=== PATIENT | male | born 1955 | race Caucasian/White ===

== ENCOUNTER → 2017-10-21 10:30 | Outpatient (CLI) | payer OTHER, SELFPAY ==
[2017-10-21 12:48] LABS: Absolute Lymphocyte Count 1.59 X10^3/ul (0.83-4.51); Absolute Neutrophil Count 2.9 X10^3/uL (2.0-7.7); Basophil# 0.06 X10^3/uL; Basophil% 1.1 % (0-1); Eosinophil# 0.23 X10^3/uL; Eosinophils% 4.3 % (0-5); Hemoglobin 14.3 g/dl (13.0-16.5); Lymphocyte # 1.59 X10^3/ul (4.0); Lymphocyte % 29.6 % (19-41); Mean Corp Hgb Conc 33.3 g/gl (32-36); Mean Corpuscular Hgb 30.2 pg (27.0-32.0); Mean Corpuscular Volume 90.9 fL (80-94); Mean Platelet Vol. 11.6 fl (6.2-12.0); Monocyte# 0.55 X10^3/uL; Monocyte% 10.2 % (0-10); Neutrophil # 2.94 X10^3/uL (2.7-7.7); Neutrophil % 54.8 % (47-70); Platelet Count 231 K/mm3 (150-450); RBC Distribution Width CV 13.3 % (11.6-14.6); RBC Distribution Width SD 44.1 fl (35.1-43.9); Red Blood Count 4.73 M/mm3 (4.6-6.2); White Blood Count 5.4 K/mm3 (4.4-11.0)
[2017-10-21 12:49] LABS: POSITIVE COUNT NO; POSITIVE DIFFERENTIAL NO; POSITIVE MORPHOLOGY NO
[2017-10-21 13:08] LABS: ALB/GLOB Ratio 0.9 RATIO (0.9-2.4); AST(SGOT) 31 U/L (15-37); Alanine Aminotransfer ALT/SGPT 48 U/L (16-61); Alkaline Phosphatase 52 U/L (45-117); Anion Gap 6 (5-15); BUN 18 mg/dL (7-18); BUN/Creat Ratio 15.7 RATIO (10-20); Calcium,Total 8.9 mg/dL (8.5-10.1); Chloride 104 mmol/L (98-107); Creatinine, Serum 1.15 mg/dL (0.70-1.30); EST Glomerular Filtration Rate 69 mL/min (>60); Est Glom Filt Rate - Afr Amer 83 mL/min (>60); Globulin 4.3 g/dL (2.2-4.2); Glucose 96 mg/dL (74-106); Potassium 4.6 mmol/L (3.5-5.1); Protein, Total 8.3 g/dL (6.4-8.2); Sodium Level 139 mmol/L (136-145); Thyroid Stim Hormone (TSH) 1.67 uIU/mL (0.358-3.74)
[2017-10-22 14:21] LABS: Hep C Antibodies <0.1 s/co ratio (0.0-0.9)
== END ==
PROVIDERS: Visit Provider Family Medicine Geriatric Medicine
DX: Z00.00 Encounter for general adult medical examination without abnormal findings (principal); Z13.89 Encounter for screening for other disorder
CPT/HCPCS: 36415; 80053; 84443; 85025; 86803

== ENCOUNTER → 2018-11-09 08:48 | Outpatient (CLI) | payer OTHER, SELFPAY ==
[2018-11-09 11:57] LABS: Absolute Lymphocyte Count 0.89 X10^3/uL (0.83-4.51); Basophil# 0.05 X10^3/uL; Eosinophil# 0.06 X10^3/uL; Eosinophils% 1.2 % (0-5); Hematocrit 44.7 % (40-54); Hemoglobin 14.9 g/dL (13.0-16.5); Lymphocyte # 0.89 X10^3/ul (4.0); Lymphocyte % 18.2 % (19-41); Mean Corp Hgb Conc 33.3 g/dL (32-36); Mean Corpuscular Hgb 31.1 pg (27.0-32.0); Mean Corpuscular Volume 93.3 fL (80-94); Mean Platelet Vol. 11.5 fl (6.2-12.0); Monocyte# 0.92 X10^3/uL; Monocyte% 18.8 % (0-10); NRBC Flagged by Analyzer 0 % (0-5); Neutrophil # 2.96 X10^3/uL (2.7-7.7); Neutrophil % 60.6 % (47-70); Platelet Count 195 K/mm3 (150-450); RBC Distribution Width CV 12.6 % (11.6-14.6); RBC Distribution Width SD 43.3 fl (35.1-43.9); Red Blood Count 4.79 M/mm3 (4.6-6.2); White Blood Count 4.9 K/mm3 (4.4-11.0)
--- NOTE | 2018-11-09 12:13 | RAD_ITS ---
STUDY: X-RAY - CERVICAL SPINE REASON FOR EXAM: Male, 63 years old. Neck pain. TECHNIQUE: 3 view(s) of the cervical spine were obtained on 4 films. COMPARISON: None FINDINGS: There are degenerative changes of the anterior atlantoaxial articulation. Normal odontoid process. Normal cervical lordosis. Normal vertebral bodies and endplates. Normal disc space heights. There are multilevel degenerative arthroses of the cervical facet articulations. Calcification seen in the nuchal ligament at the level of the C4 spinous process. There is no demonstrated osseous destructive process or fracture of the cervical spine. 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 Electronically Signed: Adrian Ellington MD at 14:02 EDT , Service support ,
--- NOTE | 2018-11-09 12:14 | RAD_ITS ---
STUDY: X-RAY - LUMBAR SPINE REASON FOR EXAM: Male, 63 years old. Low back pain. TECHNIQUE: 3 view(s) of the lumbar spine were obtained. COMPARISON: None FINDINGS: Normal lumbar lordosis. There is no substantial scoliosis. There is a normal alignment of the vertebrae. There is multilevel endplate spondylosis of the lumbar vertebrae. There is multi-level degenerative disc disease with multi-level disc space narrowing. There is no demonstrated osseous destructive process or acute fracture. There are degenerative arthroses of the lower lumbar facet joints. The soft tissue structures are unremarkable. RAD/Lumbar Spine 2 or 3 Views IMPRESSION: Degenerative changes of the spine, as detailed above. Electronically Signed: Adrian Ellington MD at 14:03 EDT , Service support ,
[2018-11-09 12:24] LABS: AST(SGOT) 20 U/L (15-37); Alanine Aminotransfer ALT/SGPT 39 U/L (16-61); Albumin, Serum 3.9 g/dL (3.2-5.0); Alkaline Phosphatase 49 U/L (45-117); Anion Gap 6 (5-15); BUN 17 mg/dL (7-18); BUN/Creat Ratio 13.4 RATIO (10-20); Calcium,Total 9.1 mg/dL (8.5-10.1); Chloride 104 mmol/L (98-107); Creatinine, Serum 1.27 mg/dL (0.70-1.30); EST Glomerular Filtration Rate 61 mL/min (>60); Est Glom Filt Rate - Afr Amer 74 mL/min (>60); Globulin 3.8 g/dL (2.2-4.2); Glucose 101 mg/dL (74-106); PSA,Total - Annual Screen 1.19 ng/mL (0.00-4.00); Protein, Total 7.7 g/dL (6.4-8.2); Sodium Level 140 mmol/L (136-145); Thyroid Stim Hormone (TSH) 1.92 uIU/mL (0.358-3.74)
== END ==
PROVIDERS: Family Provider Family Medicine Geriatric Medicine; PCP Family Medicine Geriatric Medicine; Referring Provider Family Medicine Geriatric Medicine; Visit Provider Family Medicine Geriatric Medicine
DX: I10 Essential (primary) hypertension (principal); Z12.5 Encounter for screening for malignant neoplasm of prostate; M54.16 Radiculopathy, lumbar region; G54.2 Cervical root disorders, not elsewhere classified
CPT/HCPCS: 36415; 72040; 72100; 80053; 84153; 84443; 85025; G0103

== ENCOUNTER → 2018-11-17 06:31 | Outpatient (CLI) | payer OTHER, SELFPAY ==
--- NOTE | 2018-11-17 06:40 | MRI_ITS ---
STUDY: MRI LUMBAR SPINE WITHOUT CONTRAST REASON FOR EXAM: Male, 63 years old. radiculopathy, low back pain. TECHNIQUE: Standardized fat and water weighted pulse sequences were obtained in the sagittal and axial planes. COMPARISON: November 09, 2018 x-ray FINDINGS: T12-L1: There is minimal disc space narrowing and endplate spondylosis. There is no significant disc herniation, central canal or foraminal stenosis. Normal lumbar lordosis. There is no substantial scoliosis. Normal conus medullaris that terminates at the L1 L1-2: There is minimal disc space narrowing and endplate spondylosis. There is no significant disc herniation, central canal or foraminal stenosis. Mild facet arthropathy L2-3: There is moderate disc space narrowing and endplates spondylosis. Moderate disc bulge and facet arthropathy with moderate central canal stenosis. There is mild right and mild left foraminal stenosis. L3-4: There is minimal disc space narrowing and endplate spondylosis. There is a mild disc bulge and facet arthropathy with mild central canal stenosis. There is mild right and mild left foraminal stenosis. L4-5: There is moderate disc space narrowing and endplates spondylosis. There is mild disc bulge and facet arthropathy with mild central canal stenosis. There is mild right and mild left foraminal stenosis. L5-S1: There is moderate disc space narrowing and endplates spondylosis. There is a moderate disc osteophyte complex and facet arthropathy with mild central canal stenosis. There is moderate right and moderate left foraminal stenosis. Additionally there is superiorly directed right paracentral disc extrusion (1.0 x 0.5 x 1.3 cm) resulting in moderate right lateral recess narrowing. Normal visualized sacral ala. Normal visualized paraspinous soft tissue structures. MRI/Spine Lumbar (Routine) IMPRESSION: L2/L3: Moderate central canal stenosis. L5/S1: Right disc extrusion with moderate right lateral recess narrowing. Moderate bilateral foraminal stenosis. Electronically Signed: Handy Barraza MD at 8:17 EDT Tel , Service support ,
--- NOTE | 2018-11-17 06:40 | MRI_ITS ---
STUDY: MRI CERVICAL SPINE WITHOUT CONTRAST REASON FOR EXAM: Male, 63 years old. radiculopathy, numbness/tingling bilat hands when lying down TECHNIQUE: Standardized fat and water weighted pulse sequences were obtained in the sagittal and axial planes. COMPARISON: November 09, 2018 x-ray FINDINGS: Normal foramen magnum and brainstem-cervical cord junction. Normal craniovertebral junction. Normal anterior atlantoaxial articulation. Normal odontoid process. Normal cervical lordosis. C2-3: There is minimal disc space narrowing and endplate spondylosis. There is no significant disc herniation, central canal or foraminal stenosis. C3-4: There is minimal disc space narrowing and endplate spondylosis. There is minimal disc osteophyte complex without significant central canal stenosis. Uncovertebral arthropathy with mild right and moderate left foraminal stenosis C4-5: There is minimal disc space narrowing and endplates spondylosis. Minimal disc osteophyte complex without significant central canal post. Uncovertebral and facet arthropathy with moderate right and mild left foraminal stenosis. C5-6: There is minimal disc space narrowing and endplates spondylosis. Minimal disc osteophyte complex and dorsal ligamentous buckling with mild central canal stenosis. Uncovertebral arthropathy with moderate right and mild left foraminal stenosis. C6-7: There is minimal disc space narrowing and endplate spondylosis. There is no significant disc herniation, central canal or foraminal stenosis. C7-T1: Normal endplates. Normal disc height, signal and morphology. Normal central canal and intervertebral neural foramina. Normal cervical cord. MRI/Spine Cervical (Routine) IMPRESSION: CT/C4: Moderate left foraminal stenosis. C4/C5: Moderate right foraminal stenosis. C5/C6: Mild central canal stenosis. Moderate right foraminal stenosis. Electronically Signed: Handy Barraza MD at 8:18 EDT Tel , Service support ,
== END ==
PROVIDERS: Family Provider Family Medicine Geriatric Medicine; PCP Family Medicine Geriatric Medicine; Referring Provider Family Medicine Geriatric Medicine; Visit Provider Family Medicine Geriatric Medicine
DX: M54.16 Radiculopathy, lumbar region (principal); M54.12 Radiculopathy, cervical region
CPT/HCPCS: 72141; 72148

== ENCOUNTER 2019-11-12 05:02 | Emergency (ER) | payer OTHER, SELFPAY ==
[2019-11-12 05:04] VITALS: BP 146/92; PULSE 83; RESP 16; TEMP 36.2; O2SAT 97; BMI 29.0
--- NOTE | 2019-11-12 05:33 | ED.DCSUM_ITS ---
History of Present Illness Chief Complaint: Back Narrative: 64-year-old male with history of chronic neck and back pain presents with worsening neck pain. He states he was doing fine this morning upon awakening however he decided to work on his deck and he states he was contorted himself under the deck to try to fix it. After that she noticed that his trapezius was tightening in the right greater than left. He does not have chest pain or shortness of breath. He states that he has a follow-up appointment with his regular doctor on Wednesday. He states that Tylenol usually works for his chronic pain however he believes he needs a muscle relaxer for now until he can get into his primary doctor. Past Medical History - Allergies and Home Meds Allergies/Adverse Reactions: Allergies Penicillins Allergy (Verified 11/12/19 05:07) PT UNSURE OF REACTION Primary Care Physician: Arturo Vivar Chi, MD [Primary Care Provider] - Prior records reviewed: Yes Surgical History: noncontributory Smoking Status: Never smoker Review of Systems General: Denies: Chills, Fever Eyes: Denies: Visual changes - bilaterally, Diplopia ENT: Denies: Rhinorrhea, Sore throat Cardiovascular: Denies: Chest pain, Palpitations Respiratory: Denies: Dyspnea, Cough, Dyspnea on exertion Musculoskeletal: Reports: Neck pain, Back pain Skin: Denies: Rash Neurological: Denies: Headache, Weakness, Numbness Psych: Denies: Depression Physical Exam Vital Signs/Narrative: Vital Signs Temp Pulse Resp BP Pulse Ox 11/12/19 05:04 97.2 F L 83 16 146/92 H 97 Inital Vital Signs reviewed: Yes General: Well nourished, Well developed, No Acute Distress Head: Normocephalic, Atraumatic Eyes: Perrl, EOMI Neck: - - Tenderness to palpation in the right trapezius and right paraspinal musculature. Cardiovascular: Regular rate Respiratory: No distress Extremities: Nontender, - - Normal strength. Skin: Normal color Diagnostic/Tx/Re-eval - Medical Decision Making Patient presents with exacerbation of chronic neck pain. He is not had any direct trauma. He is not complaining of weakness or numbness. He states that he just has some muscle spasm. Not believe he needs an x-ray at this time. He states that Tylenol usually helps but is not helping currently. He requests a muscle relaxer. He will be given a prescription for this. Patient stable for discharge. Impression: 1. Cervical strain ED Disposition - Plan for ED Patient: Prescriptions: cycloBENZAPRine HCl [Flexeril] 10 mg PO TID PRN #20 tab PRN Reason: Muscle Spasm Transmission Status: Pending to [facility] [facility] Referrals: Arturo Vivar Chi, MD [Primary Care Provider] -
[2019-11-12 05:54] VITALS: BP 146/92; PULSE 83; RESP 16; O2SAT 97
[2019-11-12] MEDS: cycloBENZAPRine HCl 10 MG Tablet PO (06:01)
== END 2019-11-12 06:08 | disposition home or self-care (01) ==
PROVIDERS: Emergency Provider Student in an Organized Health Care Education/Training Program; PCP Family Medicine Geriatric Medicine
DX: S16.1XXA Strain of muscle, fascia and tendon at neck level, initial encounter (principal); X58.XXXA Exposure to other specified factors, initial encounter; Y93.H3 Activity, building and construction; Y92.008 Other place in unspecified non-institutional (private) residence as the place of occurrence of the external cause; G89.29 Other chronic pain
CPT/HCPCS: 99283

== ENCOUNTER → 2019-11-17 10:46 | Outpatient (CLI) | payer OTHER, SELFPAY ==
[2019-11-12 05:04] VITALS: BMI 29.0
[2019-11-17 13:09] LABS: Absolute Lymphocyte Count 1.02 X10^3/uL (0.83-4.51); Basophil# 0.03 X10^3/uL; Basophil% 0.8 % (0-1); Eosinophil# 0.07 X10^3/uL; Hemoglobin 13.8 g/dL (13.0-16.5); Lymphocyte # 1.02 X10^3/ul (4.0); Lymphocyte % 28.5 % (19-41); Mean Corp Hgb Conc 32.9 g/dL (32-36); Mean Corpuscular Hgb 30.9 pg (27.0-32.0); Mean Platelet Vol. 11.1 fl (6.2-12.0); Monocyte# 0.44 X10^3/uL; Monocyte% 12.3 % (0-10); NRBC Flagged by Analyzer 0 % (0-5); Neutrophil # 2.02 X10^3/uL (2.7-7.7); Neutrophil % 56.4 % (47-70); Platelet Count 257 K/mm3 (150-450); RBC Distribution Width CV 12.2 % (11.6-14.6); RBC Distribution Width SD 42.3 fl (35.1-43.9); Red Blood Count 4.47 M/mm3 (4.6-6.2); White Blood Count 3.6 K/mm3 (4.4-11.0)
[2019-11-17 13:25] LABS: ALB/GLOB Ratio 0.9 RATIO (0.9-2.4); AST(SGOT) 13 U/L (15-37); Alanine Aminotransfer ALT/SGPT 26 U/L (16-61); Albumin, Serum 3.7 g/dL (3.2-5.0); Alkaline Phosphatase 45 U/L (45-117); BUN 17 mg/dL (7-18); BUN/Creat Ratio 14.7 RATIO (10-20); Chloride 106 mmol/L (98-107); Cholesterol 143 mg/dL (200); Creatinine, Serum 1.16 mg/dL (0.70-1.30); EST Glomerular Filtration Rate 68 mL/min (>60); Est Glom Filt Rate - Afr Amer 82 mL/min (>60); Globulin 4.3 g/dL (2.2-4.2); Glucose 92 mg/dL (74-106); Potassium 4.2 mmol/L (3.5-5.1); Sodium Level 139 mmol/L (136-145); Triglycerides 93 mg/dL
[2019-11-17 13:26] LABS: Anion Gap 2 (5-15); High Density Lipoprotein 44 mg/dL; PSA,Total - Annual Screen 1.19 ng/mL (0.00-4.00); Thyroid Stim Hormone (TSH) 2.06 uIU/mL (0.358-3.74); Very Low Density Lipoprotein 19 mg/dL (5-40)
== END ==
PROVIDERS: PCP Family Medicine Geriatric Medicine; Visit Provider Family Medicine Geriatric Medicine
DX: E78.5 Hyperlipidemia, unspecified (principal); I10 Essential (primary) hypertension; Z12.5 Encounter for screening for malignant neoplasm of prostate
CPT/HCPCS: 36415; 80053; 80061; 84153; 84443; 85025; G0103

== ENCOUNTER → 2020-11-13 10:20 | Outpatient (CLI) | payer OTHER, SELFPAY ==
[2020-11-13 12:39] LABS: Absolute Lymphocyte Count 1.42 X10^3/uL (0.83-4.51); Absolute Neutrophil Count 2.1 X10^3/uL (2.0-7.7); Basophil# 0.06 X10^3/uL; Basophil% 1.4 % (0-1); Eosinophil# 0.07 X10^3/uL; Eosinophils% 1.7 % (0-5); Hematocrit 44.9 % (40-54); Hemoglobin 14.7 g/dL (13.0-16.5); Lymphocyte # 1.42 X10^3/ul (0.83-4.51); Lymphocyte % 34.3 % (19-41); Mean Corp Hgb Conc 32.7 g/dL (32-36); Mean Corpuscular Hgb 30.3 pg (27.0-32.0); Mean Corpuscular Volume 92.6 fL (80-94); Mean Platelet Vol. 11.1 fl (6.2-12.0); Monocyte# 0.53 X10^3/uL; Monocyte% 12.8 % (0-10); NRBC Flagged by Analyzer 0 % (0-5); Neutrophil # 2.05 X10^3/uL (2.7-7.7); Neutrophil % 49.6 % (47-70); Platelet Count 225 K/mm3 (150-450); RBC Distribution Width CV 12.5 % (11.6-14.6); RBC Distribution Width SD 42.6 fl (35.1-43.9); Red Blood Count 4.85 M/mm3 (4.6-6.2); White Blood Count 4.1 K/mm3 (4.4-11.0)
[2020-11-13 12:53] LABS: Vitamin D,25 Hydroxy 38.2 ng/mL
[2020-11-13 13:08] LABS: ALB/GLOB Ratio 1.2 RATIO (0.9-2.4); AST(SGOT) 28 U/L (15-37); Alanine Aminotransfer ALT/SGPT 59 U/L (16-61); Alkaline Phosphatase 48 U/L (45-117); Anion Gap 5 (5-15); BUN 13 mg/dL (7-18); BUN/Creat Ratio 11.2 RATIO (10-20); Calcium,Total 8.8 mg/dL (8.5-10.1); Chloride 105 mmol/L (98-107); Creatinine, Serum 1.16 mg/dL (0.70-1.30); EST Glomerular Filtration Rate 68 mL/min (>60); Est Glom Filt Rate - Afr Amer 82 mL/min (>60); Globulin 3.3 g/dL (2.2-4.2); Glucose 95 mg/dL (74-106); PSA,Total - Annual Screen 1.24 ng/mL (0.00-4.00); Potassium 4.6 mmol/L (3.5-5.1); Protein, Total 7.3 g/dL (6.4-8.2); Sodium Level 139 mmol/L (136-145); Thyroid Stim Hormone (TSH) 2.03 uIU/mL (0.358-3.74)
== END ==
PROVIDERS: PCP Family Medicine Geriatric Medicine; Visit Provider Family Medicine Geriatric Medicine
DX: I10 Essential (primary) hypertension (principal); E55.9 Vitamin D deficiency, unspecified; Z12.5 Encounter for screening for malignant neoplasm of prostate
CPT/HCPCS: 36415; 80053; 82306; 84153; 84443; 85025; G0103

== ENCOUNTER → 2020-12-09 | Outpatient (CLI) | payer OTHER, SELFPAY ==
[2020-12-09 16:36] LABS: M R Staph aureus DNA By PCR Negative (Negative); Probe Check PASS; Specimen Processing Control PASS; Staph aureus DNA By PCR NEGATIVE (Negative)
== END | disposition home or self-care (01) ==
LOC: LABSPEC 13:56
PROVIDERS: PCP Family Medicine Geriatric Medicine; Visit Provider Family Medicine Geriatric Medicine
DX: A49.02 Methicillin resistant Staphylococcus aureus infection, unspecified site (principal)
CPT/HCPCS: 87070; 87205; 87640

== ENCOUNTER → 2021-01-07 14:01 | Outpatient (CLI) | payer OTHER, SELFPAY ==
--- NOTE | 2021-01-07 14:35 | RAD_ITS ---
STUDY: X-RAY - LUMBOSACRAL SPINE REASON FOR EXAM: Male, 65 years old. LOW BACK PAIN TECHNIQUE: 7 radiographic view(s) of the lumbosacral spine were obtained. COMPARISON: 11/09/2018 FINDINGS: Normal lumbar lordosis. There is no substantial scoliosis. There is normal alignment of the vertebrae. There is no spondylolisthesis in flexion or extension. There is multilevel endplate spondylosis of the lumbar vertebrae. There is multi-level degenerative disc disease with multi-level disc space narrowing. There is no spondylolysis. Normal bilateral sacral ala, sacroiliac joints, and visualized sacrum. There is atherosclerotic calcification of the abdominal aorta without a demonstrated aneurysm. RAD/L/S Spine w Bend Min 6 Vw IMPRESSION: Degenerative changes of the spine, as detailed above. Electronically Signed: Bentley Ortiz MD at 5:25 EDT Tel , Service support ,
== END ==
PROVIDERS: PCP Family Medicine Geriatric Medicine; Referring Provider Family Medicine Geriatric Medicine; Visit Provider Family Medicine Geriatric Medicine
DX: M47.816 Spondylosis without myelopathy or radiculopathy, lumbar region (principal); M51.36 Other intervertebral disc degeneration, lumbar region; M48.061 Spinal stenosis, lumbar region without neurogenic claudication
CPT/HCPCS: 72114

== ENCOUNTER → 2021-12-29 | Outpatient (CLI) | payer OTHER, SELFPAY ==
[2021-12-29 15:43] LABS: Absolute Lymphocyte Count 1.86 X10^3/uL (0.83-4.51); Absolute Neutrophil Count 3.2 X10^3/uL (2.0-7.7); Basophil# 0.06 X10^3/uL; Eosinophil# 0.07 X10^3/uL; Eosinophils% 1.2 % (0-5); Hematocrit 44.4 % (40-54); Hemoglobin 15.1 g/dL (13.0-16.5); Lymphocyte # 1.86 X10^3/ul (0.83-4.51); Lymphocyte % 31.7 % (19-41); Mean Corpuscular Hgb 31.1 pg (27.0-32.0); Mean Corpuscular Volume 91.4 fL (80-94); Mean Platelet Vol. 10.7 fl (6.2-12.0); Monocyte% 11.9 % (0-10); NRBC Flagged by Analyzer 0 % (0-5); Neutrophil # 3.16 X10^3/uL (2.7-7.7); Platelet Count 266 K/mm3 (150-450); RBC Distribution Width CV 12.4 % (11.6-14.6); RBC Distribution Width SD 41.2 fl (35.1-43.9); Red Blood Count 4.86 M/mm3 (4.6-6.2); White Blood Count 5.9 K/mm3 (4.4-11.0)
[2021-12-29 16:06] LABS: AST(SGOT) 25 U/L (15-37); Alanine Aminotransfer ALT/SGPT 65 U/L (16-61); Albumin, Serum 3.9 g/dL (3.2-5.0); Alkaline Phosphatase 56 U/L (45-117); Anion Gap 7 (5-15); BUN 20 mg/dL (7-18); BUN/Creat Ratio 15.5 RATIO (10-20); Calcium,Total 9.3 mg/dL (8.5-10.1); Chloride 107 mmol/L (98-107); Creatinine, Serum 1.29 mg/dL (0.70-1.30); EST Glomerular Filtration Rate 60 mL/min (>60); Est Glom Filt Rate - Afr Amer 72 mL/min (>60); Glucose 91 mg/dL (74-106); Potassium 4.1 mmol/L (3.5-5.1); Protein, Total 7.9 g/dL (6.4-8.2); Sodium Level 142 mmol/L (136-145)
== END | disposition home or self-care (01) ==
PROVIDERS: PCP Family Medicine Geriatric Medicine; Visit Provider Family Medicine Geriatric Medicine
DX: I10 Essential (primary) hypertension (principal); Z12.5 Encounter for screening for malignant neoplasm of prostate
CPT/HCPCS: 36415; 80053; 84153; 84443; 85025; G0103

== ENCOUNTER → 2022-01-26 | Outpatient (CLI) | payer OTHER, SELFPAY ==
--- NOTE | 2022-01-26 16:58 | RAD_ITS ---
STUDY: X-RAY - LUMBAR SPINE REASON FOR EXAM: Male, 66 years old. LOW BACK PAIN TECHNIQUE: 3 view(s) of the lumbar spine were obtained. COMPARISON: January 07, 2021 Lumbar Spine x-ray FINDINGS: Normal lumbar lordosis. There is no substantial scoliosis. There is a normal alignment of the vertebrae. There is multilevel spondylosis. At the level of L5-S1 there is disc space narrowing vacuum phenomenon and facet arthropathy. L2-L3 there is disc space narrowing spondylosis. Phleboliths within the pelvis. There is partially visualized degenerative change acetabular spurring within the right hip joint. RAD/Lumbar Spine 2 or 3 Views IMPRESSION: Degenerative changes of the spine, as detailed above. Electronically Signed: Kori Dimas MD at 6:16 EDT ,
== END | disposition home or self-care (01) ==
LOC: RAD 16:50
PROVIDERS: PCP Family Medicine Geriatric Medicine; Referring Provider Family Medicine Geriatric Medicine; Visit Provider Family Medicine Geriatric Medicine
DX: M54.50 Low back pain, unspecified (principal)
CPT/HCPCS: 72100

== ENCOUNTER → 2022-07-28 | Outpatient (CLI) | payer OTHER, SELFPAY ==
--- NOTE | 2022-07-28 13:51 | RAD_ITS ---
INDICATION: Knee pain, no known trauma EXAMINATION/TECHNIQUE: X-RAY - RIGHT XR Knee 3 Views 3 VIEWS COMPARISON: None. FINDINGS: SOFT TISSUES: No soft tissue swelling or gas. No radiopaque foreign body. BONES/JOINTS: No acute fracture. Joint spaces anatomically aligned and well maintained. No sclerotic or destructive changes observed. RAD/Knee 3 Views IMPRESSION: Unremarkable study. Electronically Signed: Cain Cook MD at 19:28 EDT ,
== END | disposition home or self-care (01) ==
PROVIDERS: PCP Family Medicine Geriatric Medicine; Visit Provider Family Medicine Geriatric Medicine
DX: M25.561 Pain in right knee (principal)
CPT/HCPCS: 73562

== ENCOUNTER → 2023-05-25 | Outpatient (CLI) | payer MEDICARE, OTHER, SELFPAY ==
[2023-05-25 11:09] LABS: Absolute Lymphocyte Count 1.53 X10^3/uL (0.83-4.51); Absolute Neutrophil Count 2.4 X10^3/uL (2.0-7.7); Basophil# 0.07 X10^3/uL; Basophil% 1.4 % (0-1); Eosinophils% 2.1 % (0-5); Hematocrit 46.4 % (40-54); Hemoglobin 15.3 g/dL (13.0-16.5); Lymphocyte # 1.53 X10^3/ul (0.83-4.51); Lymphocyte % 31.5 % (19-41); Mean Corpuscular Hgb 29.9 pg (27.0-32.0); Mean Corpuscular Volume 90.6 fL (80-94); Mean Platelet Vol. 11.2 fl (6.2-12.0); Monocyte# 0.79 X10^3/uL; Monocyte% 16.3 % (0-10); NRBC Flagged by Analyzer 0 % (0-5); Neutrophil # 2.36 X10^3/uL (2.7-7.7); Neutrophil % 48.5 % (47-70); Platelet Count 229 K/mm3 (150-450); RBC Distribution Width CV 12.8 % (11.6-14.6); RBC Distribution Width SD 42.4 fl (35.1-43.9); Red Blood Count 5.12 M/mm3 (4.6-6.2); White Blood Count 4.9 K/mm3 (4.4-11.0)
[2023-05-25 11:22] LABS: Vitamin D,25 Hydroxy 26.8 ng/mL
[2023-05-25 11:41] LABS: ALB/GLOB Ratio 1.1 RATIO (0.9-2.4); AST(SGOT) 27 U/L (15-37); Alanine Aminotransfer ALT/SGPT 47 U/L (16-61); Alkaline Phosphatase 61 U/L (45-117); Anion Gap 5 (5-15); BUN 18 mg/dL (7-18); BUN/Creat Ratio 14.8 RATIO (10-20); Chloride 112 mmol/L (98-107); Creatinine, Serum 1.22 mg/dL (0.70-1.30); EST Glomerular Filtration Rate 63 mL/min (>60); Est Glom Filt Rate - Afr Amer 76 mL/min (>60); Globulin 3.5 g/dL (2.2-4.2); Glucose 91 mg/dL (74-106); PSA,Total - Annual Screen 1.09 ng/mL (0.00-4.00); Potassium 4.1 mmol/L (3.5-5.1); Protein, Total 7.5 g/dL (6.4-8.2); Sodium Level 143 mmol/L (136-145)
== END | disposition home or self-care (01) ==
LOC: POLAB3 10:31
PROVIDERS: PCP Family Medicine Geriatric Medicine; Visit Provider Family Medicine Geriatric Medicine
DX: I10 Essential (primary) hypertension (principal); E55.9 Vitamin D deficiency, unspecified; Z12.5 Encounter for screening for malignant neoplasm of prostate
CPT/HCPCS: 36415; 80053; 82306; 84153; 84443; 85025; G0103

== ENCOUNTER → 2023-06-16 | Outpatient (CLI) | payer MEDICARE, OTHER, SELFPAY ==
--- OUTSIDE RECORDS SUMMARY | 2023-06-16 20:00 | XMS RPT_ITS | CCD ---
Author Name Unknown Address [facility] [address] [place] [address] Organization [facility] Care Team Providers Care Director Counseling Bureau Name Role Phone Arturo Vivar Chi Primary Care Provider [phone] Medications Completed/Discontinued Medications Medication Drug Class(es) Dates Sig (Normalized) Sig (Original) Acetaminophen (1 source) acetaminophen (T YLENOL ORAL) Take by mouth. 0 Active Problems Problem Classification Problem Date Documented Da te Episodic/Chronic Coronary atherosclerosis and other heart disease (1 source) Coronary atherosclerosis; Translations: [Atherosclerotic heart disease of viejas coronary artery without angina pectoris] Onset: 01-31-2020 01-31-2020 Chronic Disorders of lipid metabolism (1 source) Hyperlipidemia; Translations: [Hyperlipidemia, unspecified] 01-31-2020 Chronic Essential hypertension (1 source) Hypertensive disorder; Translations: [Essential (primary) hypertension] 01-31-2020 Chronic Results Test Name Value Interpretation Reference Range Facil ity Encounters Encounter Date Encounter Type Care Provider Facility Start: 03-23-2022 Refill Kathleen murray [employer] SUPERVISOR Work Phone: Cardiology Procedures Date Procedure Procedure Detail Performing Clinician History of placement of stent in anterior descending branch of left coronary artery History of placement of stent in LAD coronary artery Kathleen Shaw [employer] SUPERVISOR Work Phone: Plan of Treatment Date Care Activity Detail Author Start: 12-11-2021 Influenza vaccination INFLUENZA (#1) [facility] Start: 04-12-2021 DEPRESSION ASSESSMENT DEPRESSION ASS ESSMENT [facility] Start: 03-13-2021 COVID-19 VACCINE (4 - Booster for Pfizer series) COVID-19 VACCINE (4 - Booster for Pfizer series) [facility] Start: 2012 PROSTATE CANCER SCRE ENING DISCUSSION PROSTATE CANCER SCREENING DISCUSSION [facility] Start: 06-21-2007 SHINGRIX VACCINE (1 of 2) SHINGRIX V ACCINE (1 of 2) [facility] Start: 2002 COLOGUARD (FIT-DNA) COLOGUARD (FIT-D NA) [facility] Start: 2002 Colonoscopy COLONOSCOPY [facility] Start: 2002 COLORECTAL CANCER SCREENING COLORECTAL CANCER SCREENING [facility] Start: [address] COLONOGRAPHY [facility] Start: 2002 DIABETES SCREEN DIABETES SCREEN [facility] Start: 2002 FECAL OCCULT BLOOD FECAL OCCULT BLOO D [facility] Start: 2002 SIGMOIDOSCOPY SIGMOIDOSCOPY [facility] Start: 1992 LIPID SCREEN LIPID SCREEN [facility] Start: 1976 Urine microalbumin profile DTAP,TDAP ,TD (1 - Tdap) [facility] Start: 06-21-1975 ANNUAL PCP TEAM TRAIN DRIVER MADHAVI DISEASE VISIT ANNUAL PCP TEAM CHRONIC DISEASE VISIT [facility] Start: 06-21-1975 BP CONTROLLED (<130/80) BP CONTROLLE D (<130/80) [facility] Start: 06-21-1975 Hepatitis B surface antibody level LDL CHOLESTEROL [facility] Start: 06-21-1975 HEPATITIS C SCREENING HEPATITIS C SC REENING [facility] Start: 06-21-1975 HIV SCREENING HIV SCREENING [facility] Payers Date Payer Category Payer Private Health Insurance [employer] [id number] 2019-Present [phone] [address] [place] [address] PPO [id number] Social History Date Type Detail Facility Start: 09-08-2017 Tobacco smoking stat us NHIS Never smoked tobacco [facility] Start: 09-08-2017 Tobacco use and exposure Smoke less tobacco non-user [facility] Start: 01-30-2021 Alcohol intake Current drinke r of alcohol (finding) [facility] Start: 01-31-2020 History SDOH Alcohol Frequency 5 [facility] Start: 01-31-2020 History SDOH Alcohol Std Drinks 1 [facility] Start: 1955 Sex Assigned At Not on file C [facility] Note 03-24-2022 Telephone Encounter - Shani Lunsford MA - 03/24/2022 10:09 AM EST Note Date & Type Note Facility 03-24-2022 Miscellaneous Notes Formattin g of this note might be different from the original. Patient due for OV w/ Julian. NEVIN 01/30/21 documented in this encounter [facility] Progress note 01-30-2021 Note Date & Type Note Facility 01-30-2021 Note HNO ID: [id number] Author: Karthik Jordan, DO Service: ? Author Type: Physician Type: Progress Notes Filed: 01/30/2021 10:05 AM Note Text: [facility] OUTPATIENT VISIT DATE January 30, 2021 PRIMARY CARE PHYSICIAN: Arturo Vivar MD [id number] [address] HISTORY OF PRESENT ILLNESS: Mr. Mesa is a 65 year old male. The patient returns for follow-up due to history of coronary disease and stenting of his LAD. More recently with stressful situations he has noted what he first described as angina. With further discussion these are quick short-lived symptoms consistent with a palpitations/skipped/missed beat. He apparently has a history of such which apparently were found to be symptomatic PVCs in the past. They are more symptomatic during times of stress. Recently he has had his flu shot, booster Covid shot and a shot with steroids and other medications due to exacerbation of back pain. He actually denies anginal sounding chest discomfort, dyspnea, exercise intolerance, orthopnea, paroxysmal nocturnal dyspnea, near-syncope or syncope. PLAN AND RECOMMENDATIONS: Patient per stable without symptoms of suggest angina or cardiac decompensation. 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 Recent nuclear stress testing is normal/low risk with no ischemia or infarction. LV systolic function was normal. He is on a beta-charo. Blood pressure is slightly high again today but he is adamant that it is normotensive at home and in his family physician's office. Recent cholesterol profile apparently was excellent. We do not have those values to review unfortunately. Dietary and lifestyle modification was reemphasized to facilitate risk factor reduction. We will look forward to reevaluate him in 6 months time. Vitals: BP 142/80 Pulse (!) 58 Ht 167.6 cm (5' 6 ) Wt 81.3 kg (179 lb 4.8 oz) SpO2 99% BMI 28.94 kg/m? Physical Exam Vitals reviewed. Constitutional: General: He is not in acute distress. Appearance: He is well-developed. He is not diaphoretic. HENT: Head: Normocephalic and atraumatic. Right Ear: External ear normal. Left Ear: External ear normal. Nose: Nose normal. Eyes: General: No scleral icterus. Right eye: No discharge. Left eye: No discharge. Pupils: Pupils are equal, round, and reactive to light. Neck: Thyroid: No thyromegaly. Vascular: No JVD. Cardiovascular: Rate and Rhythm: Normal rate and regular rhythm. Heart sounds: No murmur heard. No friction rub. No gallop. Pulmonary: Effort: Pulmonary effort is normal. No respiratory distress. Breath sounds: Normal breath sounds. No wheezing or rales. Abdominal: General: Bowel sounds are normal. Palpations: Abdomen is soft. Musculoskeletal: General: Normal range of motion. Cervical back: Neck supple. Skin: General: Skin is warm and dry. Coloration: Skin is not pale. Neurological: Mental Status: He is alert and oriented to person, place, and time. Cranial Nerves: No cranial nerve deficit. Psychiatric: Mood and Affect: Mood is not anxious or depressed. Behavior: Behavior normal. Thought Content: Thought content normal. Judgment: Judgment normal. Review of Systems Constitutional: Negative for activity change, appetite change, fatigue and unexpected weight change. HENT: Negative for ear pain and trouble swallowing. Eyes: Negative for pain and visual disturbance. Respiratory: Negative for chest tightness and shortness of breath. Cardiovascular: Positive for palpitations. Negative for chest pain and leg swelling. Gastrointestinal: Negative for abdominal pain and blood in stool. Endocrine: Negative for cold intolerance and heat intolerance. Genitourinary: Negative for dysuria, hematuria and scrotal swelling. Musculoskeletal: Negative for arthralgias and myalgias. Skin: Negative for pallor and rash. Allergic/Immunologic: Negative for immunocompromised state. Neurological: Negative for dizziness, syncope and light-headedness. Hematological: Negative for adenopathy. Does not bruise/bleed easily. Psychiatric/Behavioral: Negative for sleep disturbance. The patient is not nervous/anxious. PAST MEDICAL HISTORY Diagnosis Date - CAD (coronary artery disease) stents at age 53, +family history - History of placement of stent in LAD coronary artery x2 - HTN (hypertension) - Hyperlipidemia - Premature PAST SURGICAL HISTORY Procedure Laterality Date - PAST SURGICAL HISTORY OF coronary artery stents Social History Tobacco Use - Smoking status: Never Smoker - Smokeless tobacco: Never Used Vaping Use - Vaping Use: Never used Substance Use Topics - Alcohol use: Yes - Drug use: Never FAMILY HISTORY Problem Relation Age of Onset - Cancer Mother - o (more content not included)... [facility] Summary Purpose Family History No Family History Records FoundNo Family History Records Found Advance Directives No Advanced Directives Records FoundNo Advanced Directives Records Found Additional Source Comments (unrecognized sect ion and content) No Status Records FoundNo Status Records Found INFORMATION SOURCE (unrecogn ized section and content) DATE CREATED AUTHOR AUTHOR'S ORGANIZ ATION 05/17/2021 [facility] Source Comments (unrecognize d section and content) In the event this informatio n is protected by the Federal Confidentiality of Alcohol and Drug Abuse Patient Records regulations: The Federal rules restrict any use of the information to criminally investigate or prosecute any alcohol or drug abuse patient.[facility] Reason for Visit (unrecogniz ed section and content) Care Teams (unrecognized sec tion and content) FOR RECORDS PERTAINING TO PATIENTS WHO ARE OR HAVE BEEN ENROLLED IN A CHEMICAL DEPENDENCY/SUBSTANCEABUSE PROGRAM, SOME INFORMATION MAY BE OMITTED. This clinical summary was aggregated from multiple sources. Caution should be exercised in using it in the provision of clinical care. This summary normalizes information from multiple sources, and as a consequence, information in this document may materially change the coding, format and clinical context of patient data. In addition, data may be omitted in some cases. CLINICAL DECISIONS SHOULD BE BASED ON THE PRIMARY CLINICAL RECORDS. [facility] [employer] [facility]. provides no warranty or guarantee of the accuracy or completeness of information in this document.
[2023-06-22 00:07] LABS: Lyme IgG P18 Ab Absent (.); Lyme IgG P23 Ab Absent (.); Lyme IgG P28 Ab Absent (.); Lyme IgG P30 Ab Absent (.); Lyme IgG P39 Ab Absent (.); Lyme IgG P41 Ab Present (.); Lyme IgG P45 Ab Absent (.); Lyme IgG P58 Ab Absent (.); Lyme IgG P66 Ab Absent (.); Lyme IgG P93 Ab Absent (.); Lyme IgG WB Interpretation Negative (.); Lyme IgM P23 Ab Absent (.); Lyme IgM P39 Ab Absent (.); Lyme IgM P41 Ab Absent (.); Lyme IgM WB Interpretation Negative (.)
== END | disposition home or self-care (01) ==
LOC: POLAB3 15:04
PROVIDERS: PCP Family Medicine Geriatric Medicine; Visit Provider Family Medicine Geriatric Medicine
DX: T07.XXXA Unspecified multiple injuries, initial encounter (principal); X58.XXXA Exposure to other specified factors, initial encounter
CPT/HCPCS: 36415; 86617

== ENCOUNTER → 2023-12-10 | Outpatient (CLI) | payer MEDICARE, OTHER, SELFPAY ==
--- NOTE | 2023-12-10 10:38 | RAD_ITS ---
EXAM: XR LUMBOSACRAL SPINE, 4 OR 5 VIEWS CLINICAL INDICATION: Unspecified thoracic, thoracolumbar, and lumbosacral intervertra -- low back pain -- lumbar disc disease TECHNIQUE: Frontal, lateral and bilateral oblique views of the lumbar spine. COMPARISON: 01/26/2022 FINDINGS: VERTEBRAE: Unremarkable. Preserved vertebral body height. No fracture. No spondylolisthesis. Preservation of the normal lumbar lordosis. No significant facet arthropathy. DISC SPACES: There is disc space narrowing at L4-5 and L5-S1. GASTROINTESTINAL TRACT: Unremarkable as visualized. Included bowel gas pattern is non-obstructive. RAD/L/S Spine Min 4 Views IMPRESSION: Mild degenerative changes with disc space narrowing the lower lumbar spine. There is no acute osseous abnormality. There has been no significant change from the reference exam. Electronically Signed: Amari Perez MD at 17:51 EDT ,
== END | disposition home or self-care (01) ==
LOC: RAD 10:37
PROVIDERS: PCP Family Medicine Geriatric Medicine; Referring Provider Family Medicine Geriatric Medicine; Visit Provider Family Medicine Geriatric Medicine
DX: M51.9 Unspecified thoracic, thoracolumbar and lumbosacral intervertebral disc disorder (principal); M54.50 Low back pain, unspecified
CPT/HCPCS: 72110

== ENCOUNTER → 2024-06-26 | Outpatient (CLI) | payer MEDICARE, OTHER, SELFPAY ==
[2024-06-26 09:53] LABS: Absolute Neutrophil Count 2.7 X10^3/uL (2.0-7.7); Basophil# 0.05 X10^3/uL; Eosinophil# 0.09 X10^3/uL; Eosinophils% 1.9 % (0-5); Hematocrit 44.6 % (40-54); Hemoglobin 15.3 g/dL (13.0-16.5); Lymphocyte % 28.8 % (19-41); Mean Corp Hgb Conc 34.3 g/dL (32-36); Mean Corpuscular Hgb 30.9 pg (27.0-32.0); Mean Corpuscular Volume 90.1 fL (80-94); Mean Platelet Vol. 10.8 fl (6.2-12.0); Monocyte# 0.61 X10^3/uL; Monocyte% 12.6 % (0-10); NRBC Flagged by Analyzer 0 % (0-5); Neutrophil % 55.5 % (47-70); Platelet Count 221 K/mm3 (150-450); RBC Distribution Width CV 12.9 % (11.6-14.6); RBC Distribution Width SD 42.5 fl (35.1-43.9); Red Blood Count 4.95 M/mm3 (4.6-6.2); White Blood Count 4.9 K/mm3 (4.4-11.0)
[2024-06-26 13:50] LABS: ALB/GLOB Ratio 1.5 RATIO (0.9-2.4); AST(SGOT) 27 U/L (<=37); Alanine Aminotransfer ALT/SGPT 33 U/L (<=46); Albumin, Serum 4.4 g/dL (3.4-4.8); Alkaline Phosphatase 54 U/L (40-129); Anion Gap 9 (5-15); BUN 17 mg/dL (4-19); BUN/Creat Ratio 15.3 RATIO (10-20); Calcium,Total 9.6 mg/dL (7.6-11.0); Carbon Dioxide 25.6 mmol/L (21.0-32.0); Chloride 106 mmol/L (98-108); Creatinine, Serum 1.14 mg/dL (0.70-1.20); EST Glomerular Filtration Rate 70 (>60); Globulin 2.9 g/dL (2.2-4.2); Glucose 105 mg/dL (70-99); Potassium 4.6 mmol/L (3.3-5.1); Protein, Total 7.3 g/dL (5.9-8.4); Sodium Level 140 mmol/L (133-145); Total Bilirubin 0.38 mg/dL (0.00-1.30)
[2024-06-26 13:56] LABS: Vitamin D,25 Hydroxy 23.7 ng/mL (30-100)
== END | disposition home or self-care (01) ==
LOC: POLAB3 09:39
PROVIDERS: PCP Family Medicine Geriatric Medicine; Visit Provider Family Medicine Geriatric Medicine
DX: I10 Essential (primary) hypertension (principal); E55.9 Vitamin D deficiency, unspecified
CPT/HCPCS: 36415; 80053; 82306; 84443; 85025

== ENCOUNTER → 2024-07-31 | Outpatient (CLI) | payer MEDICARE, OTHER, SELFPAY ==
--- NOTE | 2024-07-31 10:01 | MRI_ITS ---
EXAM: MRI LUMBAR SPINE. CLINICAL HISTORY: Low back pain into the hips. COMPARISON: None. TECHNIQUE: Axial and sagittal T1 and T2 weighted images were obtained. Fat suppressed images were also obtained. FINDINGS: Mild degenerative dextroscoliosis apex at L3. 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 There are moderate diffuse spondylotic changes. Findings are demonstrated by multifocal disc dehydration, disc space narrowing, osteophyte formation and degenerative endplate changes. There is normal signal intensity from the visualized bone marrow without evidence of replacement or acute fracture. The conus is unremarkable. Straightening of the lumbar lordosis, probably muscular spasm and pain. Evaluation of the individual levels revealed the following: L5-S1: There is grade 1 retrolisthesis measuring 3.2 mm. Mild diffuse disc bulge. Superimposed broad-based left posterolateral/foraminal disc protrusion measuring 4.7 mm. Bilateral facet joint arthropathy. The spinal canal is not narrowed. There is moderate bilateral neural foramina narrowing. L4-5: There is grade 1 anterolisthesis measuring 2.3 mm. Mild diffuse disc bulge. Superimposed broad-based central disc protrusion measuring 2.7 mm. Mild bilateral facet joint arthropathy. Moderate bilateral ligamentum flavum hypertrophy. Well-defined synovial cyst is noted in the left posterolateral aspect of the spinal canal measuring 5.3 mm. The spinal canal is mildly narrowed. There is mild bilateral neural foramina narrowing. L3-4: There is mild diffuse disc bulge. Bilateral facet joint arthropathy and ligamentum flavum hypertrophy. The spinal canal is not narrowed. There is mild bilateral neural foramina narrowing. L2-3: There is grade 1 retrolisthesis measuring 3.5 mm. Moderate diffuse disc bulge. Superimposed right paracentral/posterolateral disc extrusion measuring 5.3 mm. Bilateral facet joint arthropathy and ligamentum flavum hypertrophy. The spinal canal is moderately narrowed measuring 7.4 mm. There is moderate bilateral neural foramina narrowing. L1-2: There is mild diffuse disc bulge. Bilateral facet joint arthropathy and ligamentum flavum hypertrophy. The spinal canal is not narrowed. There is mild bilateral neural foramina narrowing. T12-L1: There is minimal diffuse disc bulge. The spinal canal is not narrowed. There is minimal bilateral neural foraminal narrowing. T11-T12 : There is mild diffuse disc bulge. The spinal canal is not narrowed. There is mild bilateral neural foraminal narrowing. Left renal cyst measuring 2.8 cm containing thick proteinaceous material. Normal remaining visualized paraspinous soft tissue structures. MRI/Spine Lumbar (Routine) IMPRESSION: Spondylosis. Degenerative disc disease. Reading [facility] [id number]
== END | disposition home or self-care (01) ==
LOC: MRI 09:57
PROVIDERS: PCP Family Medicine Geriatric Medicine; Referring Provider Family Medicine Geriatric Medicine; Visit Provider Family Medicine Geriatric Medicine
DX: M54.50 Low back pain, unspecified (principal)
CPT/HCPCS: 72148

== ENCOUNTER → 2024-10-19 | Outpatient (CLI) | payer MEDICARE, OTHER, SELFPAY ==
[2024-10-19 21:21] LABS: CPK Total, Creatine Kinase 170 U/L (24-195)
== END | disposition home or self-care (01) ==
LOC: POLAB3 17:15
PROVIDERS: PCP Family Medicine Geriatric Medicine; Visit Provider Family Medicine Geriatric Medicine
DX: E78.5 Hyperlipidemia, unspecified (principal); I25.10 Atherosclerotic heart disease of native coronary artery without angina pectoris
CPT/HCPCS: 36415; 82550

== ENCOUNTER → 2024-12-25 | Outpatient (CLI) | payer MEDICARE, OTHER, SELFPAY ==
--- OUTSIDE RECORDS SUMMARY | 2024-12-25 07:03 | XMS RPT_ITS | CCD ---
Author Organization [facility] Care Team Providers Care Windows Consultant Name Role Phone Cb Arturo Chi Primary Care Provider [phone] Cb TURNER, Dr. Arturo Wagner Primary Care Provider Cb TURNER, Dr. Arturo Wagner Attending Provider Cb TURNER, Dr. Arturo Wagner Referring Provider Chon TURNER, Dr. Rosales Attending Provider [phone] Cb TURNER, Dr. Arturo Wagner Primary Care Provider Cb TURNER, Dr. Arturo Wagner Attending Provider Cb, Arturo Chi Primary Care Unavailable Chon, Jackpot Attending Unavailable Cb, Arturo Chi Referring Unavailable Cb, Arturo Chi Primary Care Unavailable Cohn, Jackpot Attending Unavailable Cb, Arturo Chi Referring Unavailable Cb, Arturo Chi Primary Care Unavailable Cb, Arturo Chi Attending Unavailable Cb, Arturo Chi Primary Care Unavailable Cb, Arturo Chi Attending Unavailable Cb, Arturo Chi Primary Care Unavailable Cb, Arturo Chi Attending Unavailable Cb, Arturo Chi Referring Unavailable Cb, Arturo Chi Primary Care Unavailable Chon, Bobby Attending Unavailable Chon, Jackpot Referring Unavailable Allergies Allergy Classification Reported Allergen(s) Allergy Type Date of Onset Reaction(s) Facility (9 sources) Penicillins Allergy to substance 0 PT UNSURE OF REACTION [facility] (2 sources) Metoprolol Drug Allergy 5 Muscle pain [facility] (1 source) Metoprolol Drug Allergy 5 [facility] (1 source) Penicillins Drug allergy (disorder) 5 [facility] Medications Current Medications Medication Drug Class(es) Dates Sig (Normalized) Sig (Original) 8 hr acetaminophen 650 mg extended release oral tablet (5 sources) Start: 09-14-2023 take 1 tablet by mouth once daily Acetaminophen 650 mg tablet extended release Active 650 mg PO DAILY September 14, 2023 12:00am Spinal stenosis acetaminophen (T YLENOL ORAL) Take by mouth. 0 Active Comment on above: Take by mouth. ALPRAZolam 0.25 mg oral tablet (14 sources) Benzodiazepine Start: 11-10-2024 take 0.375 mg by mouth at bedtime Alprazolam 0.25 mg tablet Active 0.375 mg PO AT BEDTIME November 10, 2024 9:49am Start: 04-01-2021 End: 11-10-2024 take 2 tablets by mouth at bedtime Alprazolam 0.25 mg tablet Discontinued 0.5 mg PO AT BEDTIME September 28, 2024 1:31pm November 10, 2024 9:51am Start: 04-01-2021 take 0.5 mg by mouth once enrique y Alprazolam Active 0.5 MG PO DAILY April 01, 2021 1:00am take 1 tablet by michael th every twenty-four hours as needed ALPRAZolam (XANAX) 1 mg tablet Take 1 mg by mouth at bedtime as needed. Can take up to two tablets at HS 0 Active Comment on above: Take 1 mg by mouth a t bedtime as needed. Can take up to two tablets at HS aspirin 81 mg delayed release oral tablet (10 sources) Platelet Aggregation Inhibitor, Nonsteroidal Anti-inflammatory Drug Start: 04-01-2021 take 1 tablet by mouth once daily Aspirin (Adult Aspirin Regimen) 81 mg tablet,delayed release (DR/EC) Active 81 mg PO DAILY April 01, 2021 1:00am take 1 tablet by mouth once enrique y aspirin 81 mg chewable tablet Take 81 mg by mouth once daily. 0 Active Comment on above: Take 81 mg by mouth once daily. bisoprolol fumarate 2.5 mg oral tablet (20 sources) beta-Adrenergic Jesus Start: 11-10-2024 take 1.25 mg by mouth once daily Bisoprolol Fumarate 2.5 mg tablet Active 1.25 mg PO daily November 10, 2024 9:50am Start: 10-24-2024 End: 11-10-2024 take 1 tablet by mouth once daily Bisoprolol Fumarate 2.5 mg tablet Discontinued 2.5 mg PO daily October 24, 2024 12:00am November 10, 2024 9:51am Start: 04-02-2021 End: 09-14-2023 take 2.5 mg by mouth once daily Bisoprolol Fumarate 5 mg tablet Discontinued 2.5 mg PO DAILY 45 May 28, 2021 2:48pm September 14, 2023 11:32am Start: 04-02-2021 End: 05-28-2021 take 2.5 mg by mouth once daily Bisoprolol Fumarate Ac tive 2.5 MG PO DAILY May 28, 2021 2:48pm Start: 04-01-2021 End: 04-02-2021 take 1 tablet by mouth once daily Bisoprolol Fumarate 5 mg tablet Discontinued 5 mg PO DAILY April 01, 2021 1:00am April 02, 2021 11:45am famotidine 40 mg oral tablet (10 sources) Histamine-2 Receptor Antagonist Start: 04-01-2021 take 1 tablet by mouth once daily Famotidine 40 mg tablet Active 40 mg PO DAILY April 01, 2021 1:00am Comment on above: Take 40 mg by mouth once daily. naproxen sodium 550 mg oral tablet (4 sources) Nonsteroidal Anti-inflammatory Drug Start: 09-14-2023 take 1 tablet by mouth once daily Naproxen Sodium 550 mg tablet Active 550 mg PO DAILY September 14, 2023 12:00am Moderate Spinal stenosis perindopril erbumine 4 mg oral tablet (11 sources) Angiotensin Converting Enzyme Inhibitor Start: 04-01-2021 End: 03-24-2022 take 1 tablet by mouth once daily in the morning Perindopril Erbumine 4 mg tablet Active 4 mg PO EVERY MORNING April 01, 2021 1:00am Comment on above: take 1 tablet by michael th once daily Completed/Discontinued Medications Medication Drug Class(es) Dates Sig (Normalized) Sig (Original) bisoprolol fumarate 2.5 mg / hydroCHLOROthiazide 6.25 mg oral tablet (1 source) Thiazide Diuretic, beta-Adrenergi c Jesus take 1 tablet by mouth once daily bisoprolol-hydrochlo rothiazide (ZIAC) 2.5-6.25 mg per tablet Take 1 tablet by mouth once daily. 0 Active Comment on above: Take 1 tablet by michael th once daily. cyclobenzaprine hydrochloride 10 mg oral tablet (9 sources) Muscle Relaxant Start: 11-12-2019 End: 04-01-2021 take 1 tablet by mouth three times daily as needed for muscle spasms Cyclobenzaprine 10 MG tablet Discontinued 10 mg PO THREE TIMES A DAY as needed for Muscle Spasm 20 0 November 12, 2019 12:00am April 01, 2021 9:46pm gabapentin 100 mg oral capsule (9 sources) Anti-epileptic Agent Start: 04-02-2021 End: 09-28-2024 take 1 capsule by mouth at bedtime as needed Gabapentin 100 mg capsule Discontinued 100 mg PO AT BEDTIME as needed April 02, 2021 1:00am September 28, 2024 1:31pm 24 hr metoprolol succinate 25 mg extended release oral tablet (7 sources) beta-Adrenergi c Jesus Start: 09-28-2024 End: 10-24-2024 take 2 tablets by mouth once daily Metoprolol Succinate (Toprol Xl) 25 mg tablet extended release 24 hr Discontinued 12.5 mg PO DAILY September 28, 2024 1:31pm October 24, 2024 4:52pm Start: 09-14-2023 End: 09-28-2024 take 1 tablet by mouth once daily Metoprolol Succinate (Toprol Xl) 25 mg tablet extended release 24 hr Discontinued 25 mg PO DAILY 180 4 September 14, 2023 12:00am September 28, 2024 1:32pm raNITIdine (1 source) Histamine-2 Receptor Antagonist ranitidine HCl (ZANTAC 75 ORAL) Take by mouth. 0 Active Comment on above: Take by mouth. rosuvastatin calcium 10 mg oral tablet (20 sources) HMG-CoA Reductase Inhibitor Start: End: take 1 tablet by mouth every other day Rosuvastatin 10 mg tablet Discontinued 10 mg PO every other day 108 3 October 02, 2024 12:00am November 10, 2024 9:51am Start: 04-02-2021 End: 10-02-2024 take 1 tablet by mouth every other day Rosuvastatin 20 mg tablet Discontinued 20 mg PO .QOD April 02, 2021 11:43am October 02, 2024 4:32pm Start: 04-01-2021 End: 04-02-2021 take 1 tablet by mouth once daily Rosuvastatin 20 mg tablet Discontinued 20 mg PO DAILY April 01, 2021 1:00am April 02, 2021 11:45am Comment on above: Take 20 mg by mouth once daily. Problems Problem Classification Problem Date Documented Da te Episodic/Chronic Cardiac dysrhythmias (9 sources) Multiple premature ventricular complexes; Translations: [Ventricular premature depolarization] 04-02-2021 Chronic Coronary atherosclerosis and other heart disease (10 sources) Coronary atherosclerosis; Translations: [Atherosclerotic heart disease of chemehuevi coronary artery without angina pectoris] Onset: 01-31-2020 01-31-2020 Chronic Coronary atherosclerosis and other heart disease (1 source) Presence of coronary angioplasty implant and graft; Translations: [Presence of coronary angioplasty implant and graft] Onset: 12-20-2024 Episodic Disorders of lipid metabolism (13 sources) Hyperlipidemia; Translations: [Hyperlipidemia, unspecified] Onset: 10-25-2024 01-31-2020 Chronic Essential hypertension (13 sources) Essential hypertension; Translations: [Essential (primary) hypertension] Onset: 07-05-2024 01-31-2020 Chronic Other nutritional; endocrine; and metabolic disorders (9 sources) Obesity; Translations: [Obesity, unspecified] 04-01-2021 Chronic Residual codes; unclassified (9 sources) Central sleep apnea syndrome; Translations: [Primary central sleep apnea] 04-02-2021 Chronic Comment on above: using xanax Unclassified (1 source) Low back pain, unspecified; Translations: [Low back pain, unspecified] Onset: 08-03-2024 Results Test Name Value Interpretation Reference Range Facility Cardiology Visit Reporton Cardiology Visit Report [facility] [place] [id number] [facility] [place] [address] OFFICE VISIT Date of Service: 11/10/24 MR#: [id number] Acct: [id number] Name: SAMANTHAMARY PATRIA Rep #: [id number] : 1955 Provider: Dr. Bobby Givens MD Age/Sex: 69/M Location: [facility] Status: Signed HPI HPI History of Present Illness Details: Pleasant 69-year-old man with a significant cardiac history including a history of hypertension, hyperlipidemia, central sleep apnea, mild obesity. He was diagnosed with coronary artery disease while in [place] in the summer 2008. He underwent an angiogram done and had a 3.5 x 12 mm everolimus drug-eluting stent placed the proximal left anterior descending artery and a 3.0 x 12 mm drug- eluting stent between the mid and distal left anterior descending artery. The circumflex artery had a mild luminal irregularities in the right coronary artery was also dominant with a lesion noted. He was subsequently brought back in January 2009 and underwent a 3.5 x 18 mm exercise stent placement to the mid right coronary artery. He has done well since then and has been followed up through all his travels in [place] in [facility]. He has relocated and retired back here to [place] and is here for an evaluation. He had previously seen a associate pastor in [facility] and underwent myocardial perfusion stress test where he exercised 8.3 metabolic equivalents without any evidence of ischemia. An echocardiogram at that time demonstrated preserved ejection fraction estimated at 59% with a global longitudinal strain score of 17.2. He had been on his statin which he had not tolerated and so he has been on a statin holiday he tells me that you did some blood work on him and are considering putting him on inclisiran. He remains quite active. His blood pressure has not been under very good control. He has been switched onto bisoprolol. Intake Vital Signs 09/28/24 13:27 11/10/24 09:44 11/10/24 09:55 Height 5 ft 6 in 5 ft 6 in Weight: 178 lb 178 lb BMI 28.7 28.7 BP 139/88 H 179/95 H 165/95 H Blood Pressure Location Lt brachial Lt brachial Rt brachial Position Sitting Sitting Sitting Respiration 16 16 Pulse 74 Pulse Source Monitor Monitor Intake Visit Reasons: MED REVIEW/DIETETIC TECH PER PT RQ Credit Risk Officer Required: No Accompanied by: Self Is patient in pain?: No Allergies Penicillins Allergy (Verified 11/10/24 09:48) PT UNSURE OF REACTION metoprolol Adverse Reaction (Intermediate, Verified 11/10/24 09:48) Muscle pain Medications ???Medication ???Instructions ???Recorded ???Confirmed ???Type aspirin 81 mg tablet,delayed 81 mg PO DAILY 04/01/21 11/10/24 H istory release (Adult Aspirin Regimen) famotidine 40 mg tablet 40 mg PO DAILY 04/01/21 11/10/24 H istory acetaminophen 650 mg 650 mg PO DAILY Spinal stenosis 11/10/24 History tablet,extended release naproxen sodium 550 mg tablet 550 mg PO DAILY Moderate Spinal 11/10/24 History stenosis alprazolam 0.25 mg tablet 0.375 mg PO QHS 11/10/24 11/10/24 History bisoprolol fumarate 2.5 mg tablet 1.25 mg PO QDAY 11/10/24 History perindopril erbumine 8 mg tablet 8 mg PO QAM #90 tabs 11/10/24 0805/06 Rx Have you fallen in the past year?: No PFSH Medical History Multiple premature ventricular complexes Spinal stenosis in cervical region Insomnia Central sleep apnea Atherosclerotic heart disease of chemehuevi coronary artery without angina pectoris Essential hypertension Hyperlipidemia Obesity Surgical History History of coronary artery stent placement (02/07/09) Social History Smoking Status: Never smoker ROS Const Const: Negative for fatigue, weakness, headache(s), daytime sleepiness or difficulty sleeping ENT ENT: Negative for headache(s), dizziness or Nosebleed/epistaxis Cardio Chest Pain: No Palpitations: No Edema: None Resp Respiratory: Negative for SOB with activity, SOB at rest, SOB orthopnea SOB lying down or Cough GI GI: Negative nausea, vomiting or heartburn Neuro Neuro: Negative for dizziness, lightheadedness, near syncope, headache(s) or weakness Endo Endo: Negative for fatigue Cardiology Exam Const Appearance: cooperative, healthy appearing, no acute distress, well developed and well groomed Nutritional Appearance: average body habitus and well nourished Orientation: alert, awake and oriented x3 Head Head: normal to inspection, normocephalic and atraumatic Ears: hearing grossly normal bilaterally and external ears normal Nose: external nose normal, nares normal, nasal mucous membranes and turbinates normal, septum n (more content not included)... Normal [facility] CPK Total, Creatine Kinaseon 10-19-2024 CPK TOTAL 170 U/L Normal [facility] Comment on above: Performed By: #### L [id number] #### [facility] [address] [place], [address] Serum or plasma creatine kin ase activityOrdered By: Arturo Vivar on 10-19-2024 CK [Catalytic activity/Vol] 170 U/L 24-195 [facility] Cardiology Visit Reporton Cardiology Visit Report [facility] [address] [place] [address] OFFICE VISIT Date of Service: 09/28/24 MR#: [id number] Acct: [id number] Name: MARY MESA Rep #: [id number] : 1955 Provider: Dr. Bobby Givens MD Age/Sex: 69/M Location: [facility] Status: Signed HPI HPI History of Present Illness Details: Pleasant 69-year-old man with a significant cardiac history including a history of hypertension, hyperlipidemia, central sleep apnea, mild obesity. He was diagnosed with coronary artery disease while in [place] in the summer 2008. He underwent an angiogram done and had a 3.5 x 12 mm everolimus drug-eluting stent placed the proximal left anterior descending artery and a 3.0 x 12 mm drug- eluting stent between the mid and distal left anterior descending artery. The circumflex artery had a mild luminal irregularities in the right coronary artery was also dominant with a lesion noted. He was subsequently brought back in January 2009 and underwent a 3.5 x 18 mm exercise stent placement to the mid right coronary artery. He has done well since then and has been followed up through all his travels in [place] in [facility]. He has relocated and retired back here to [place] and is here for an evaluation. He had previously seen a associate pastor [place] and underwent myocardial perfusion stress test where he exercised 8.3 metabolic equivalents without any evidence of ischemia. An echocardiogram at that time demonstrated preserved ejection fraction estimated at 59% with a global longitudinal strain score of 17.2. He had made some changes to his lipid-lowering medications and his current lipid profile is excellent with a total cholesterol 153, triglycerides of 246, LDL of 53 and HDL of 52. He denies any chest pain paroxysmal nocturnal dyspnea pedal edema no neck arm or jaw discomfort to suggest angina he is still fairly active. His major complaint at this time is that he still has some muscle aches as well as waist discomfort. He had an MRI of the pelvis which was unremarkable and his PSA is normal. Intake Vital Signs 09/14/23 10:59 09/28/24 13:27 Height 5 ft 6 in 5 ft 6 in Weight: 178 lb BMI 28.7 BP 139/88 H Blood Pressure Location Lt brachial Position Sitting Respiration 16 Pulse 74 Pulse Source Monitor Intake Visit Reasons: 1 Y FU Credit Risk Officer Required: No Accompanied by: Self Is patient in pain?: No Allergies Penicillins Allergy (Verified 09/28/24 13:31) PT UNSURE OF REACTION Medications ???Medication ???Instructions ???Recorded ???Confirmed ???Type aspirin 81 mg tablet,delayed 81 mg PO DAILY 04/01/21 09/28/24 H istory release (Adult Aspirin Regimen) famotidine 40 mg tablet 40 mg PO DAILY 04/01/21 09/28/24 H istory perindopril erbumine 4 mg tablet 4 mg PO QAM 04/01/21 09/28/24 Hist ory rosuvastatin 20 mg tablet 20 mg PO .QOD 04/02/21 09/28/24 Hi story acetaminophen 650 mg 650 mg PO DAILY Spinal stenosis 09/28/24 History tablet,extended release naproxen sodium 550 mg tablet 550 mg PO DAILY Moderate Spinal 09/28/24 History stenosis alprazolam 0.25 mg tablet 0.5 mg PO QHS 09/28/24 09/28/24 Hi story metoprolol succinate 25 mg 12.5 mg PO DAILY 09/28/24 09/28/24 History tablet,extended release 24 hr (Toprol XL) Have you fallen in the past year?: Yes PFSH Medical History Multiple premature ventricular complexes Spinal stenosis in cervical region Insomnia Central sleep apnea Atherosclerotic heart disease of chemehuevi coronary artery without angina pectoris Essential hypertension Hyperlipidemia Obesity Surgical History History of coronary artery stent placement (02/07/09) Social History Smoking Status: Never smoker ROS Const Const: Positive for fatigue and weakness (from muscle pains); Negative for headache(s), daytime sleepiness or difficulty sleeping ENT ENT: Negative for headache(s), dizziness or Nosebleed/epistaxis Cardio Chest Pain: No Palpitations: No Edema: None Resp Respiratory: Negative for SOB with activity, SOB at rest, SOB orthopnea SOB lying down or Cough GI GI: Negative nausea, vomiting or heartburn Neuro Neuro: Positive for weakness (from muscle pains); Negative for dizziness, lightheadedness, near syncope or headache(s) Endo Endo: Positive for fatigue Cardiology Exam Const Appearance: cooperative, healthy appearing, no acute distress, well developed and well groomed Nutritional Appearance: average body habitus and well nourished Orientation: alert, awake and oriented x3 Head Head: normal to inspection, normocep (more content not included)... Normal [facility] Spine Lumbar (Routine)on Spine Lumbar (Routine) [facility] Imaging Services [address] [place] [id number] Spine Lumbar (Routine) MR#: [id number] Acct: [id number] Name: MARY MESA Rep #: [id number] : 1955 M 69 From: Fabiola michele MD PCP: Dr. Arturo Vivar MD Status: REG CLI Study: Spine Lumbar (Routine) Date of Exam: 07/31/24 Exam# [id number] Ordering Dr: Arturo Vivar MD EXAM: MRI LUMBAR SPINE. CLINICAL HISTORY: Low back pain into the hips. COMPARISON: None. TECHNIQUE: Axial and sagittal T1 and T2 weighted images were obtained. Fat suppressed images were also obtained. FINDINGS: Mild degenerative dextroscoliosis apex at L3. 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 There are moderate diffuse spondylotic changes. Findings are demonstrated by multifocal disc dehydration, disc space narrowing, osteophyte formation and degenerative endplate changes. There is normal signal intensity from the visualized bone marrow without evidence of replacement or acute fracture. The conus is unremarkable. Straightening of the lumbar lordosis, probably muscular spasm and pain. Evaluation of the individual levels revealed the following: L5-S1: There is grade 1 retrolisthesis measuring 3.2 mm. Mild diffuse disc bulge. Superimposed broad-based left posterolateral/forami nal disc protrusion measuring 4.7 mm. Bilateral facet joint arthropathy. The spinal canal is not narrowed. There is moderate bilateral neural foramina narrowing. L4-5: There is grade 1 anterolisthesis measuring 2.3 mm. Mild diffuse disc bulge. Superimposed broad-based central disc protrusion measuring 2.7 mm. Mild bilateral facet joint arthropathy. Moderate bilateral ligamentum flavum hypertrophy. Well-defined synovial cyst is noted in the left posterolateral aspect of the spinal canal measuring 5.3 mm. The spinal canal is mildly narrowed. There is mild bilateral neural foramina narrowing. L3-4: There is mild diffuse disc bulge. Bilateral facet joint arthropathy and ligamentum flavum hypertrophy. The spinal canal is not narrowed. There is mild bilateral neural foramina narrowing. L2-3: There is grade 1 retrolisthesis measuring 3.5 mm. Moderate diffuse disc bulge. Superimposed right paracentral/posterola teral disc extrusion measuring 5.3 mm. Bilateral facet joint arthropathy and ligamentum flavum hypertrophy. The spinal canal is moderately narrowed measuring 7.4 mm. There is moderate bilateral neural foramina narrowing. L1-2: There is mild diffuse disc bulge. Bilateral facet joint arthropathy and ligamentum flavum hypertrophy. The spinal canal is not narrowed. There is mild bilateral neural foramina narrowing. T12-L1: There is minimal diffuse disc bulge. The spinal canal is not narrowed. There is minimal bilateral neural foraminal narrowing. T11-T12 : There is mild diffuse disc bulge. The spinal canal is not narrowed. There is mild bilateral neural foraminal narrowing. Left renal cyst measuring 2.8 cm containing thick proteinaceous material. Normal remaining visualized paraspinous soft tissue structures. MRI/Spine Lumbar (Routine) IMPRESSION: Spondylosis. Degenerative disc disease. [facility]: Dr. Arturo Vivar MD Dental Hygienist: Signed Normal [facility] Absolute lymphocyte countOrd ered By: Arturo Vivar on 06-26-2024 Lymphocytes Auto (Unsp spec) [#/Vol] 1.40 10*3/uL 0.83-4.51 [facility] Absolute neutrophil countOrd ered By: Arturo Vivar on 06-26-2024 Neutrophils (Bld) [#/Vol] 2.7 10*3/uL 2.0-7.7 [facility] Anion gap in Serum or Plasma Ordered By: Arturo Cb on 06-26-2024 Anion gap [Moles/Vol] 9 mmol/L 5- [facility] Automated lymphocyte count a s percentage of total leukocytesOrdered By: Arturo Vivar on 06-26-2024 Lymphocytes/100 WBC Auto (Unsp spec) 28.8 % - [facility] BUN/creatinine ratioOrdered By: Arturo Vivar on 06-26-2024 Urea nitrogen/Creatinine [Mass ratio] 15.3 mg/mg - [facility] Basophil percentageOrdered B y: Arturo Cb on 06-26-2024 Basophils/100 WBC (Bld) 1.0 % 0-1 [facility] Bilirubin, totalOrdered By: Arturo Vivar on 06-26-2024 Bilirubin [Mass/Vol] 0.38 mg/dL 0.00-1.30 [facility] CBC W/Diff, Automatedon 06-10 Absolute Lymph 1.40 X10 3/uL Normal 0.83-4.51 [facility] Comment on above: Performed By: #### L 506.1001, L501.9520, L500.4050, L100.0100 #### [facility] [address] [place], [address] Absolute Neut 2.7 X10 3/uL Normal 2.0-7.7 [facility] Comment on above: Performed By: #### L 506.1001, L501.9520, L500.4050, L100.0100 #### [facility] [address] [place], [address] Basophils/100 WBC (Bld) 1.0 % Normal 0-1 [facility] Comment on above: Performed By: #### L 506.1001, L501.9520, L500.4050, L100.0100 #### [facility] [address] [place], [address] Eosinophils/100 WBC (Bld) 1.9 % Normal 0-5 [facility] Comment on above: Performed By: #### L 506.1001, L501.9520, L500.4050, L100.0100 #### [facility] [address] [place], [address] Erythrocyte distribution width (RBC) [Ratio] 12.9 % Normal 11.6-14.6 [facility] Comment on above: Performed By: #### L 506.1001, L501.9520, L500.4050, L100.0100 #### [facility] [address] [place], [address] Hematocrit (Bld) [Volume fraction] 44.6 % Normal 40-54 [facility] Comment on above: Performed By: #### L 506.1001, L501.9520, L500.4050, L100.0100 #### [facility] [address] [place], [address] Hemoglobin (Bld) [Mass/Vol] 15.3 g/dL Normal 13.0-16.5 [facility] Comment on above: Performed By: #### L 506.1001, L501.9520, L500.4050, L100.0100 #### [facility] [address] [place], [address] IG% 0.200 Normal 0.0-0.9 [facility] Comment on above: Result Comment: IG% - Immature Granulocytes (promyelocytes, myelocytes and metamyelocytes) > 1% indicates that a LEFT SHIFT is Present. Performed By: #### L 506.1001, [id number], L500.4050, L100.0100 #### [facility] [address] [place], [address] Lymphocytes/100 WBC (Bld) 28.8 % Normal 19-41 [facility] Comment on above: Performed By: #### L 506.1001, [id number], L500.4050, L100.0100 #### [facility] [address] [place], [address] MCH (RBC) [Entitic mass] 30.9 pg Normal 27.0-32.0 [facility] Comment on above: Performed By: #### L 506.1001, [id number], L500.4050, L100.0100 #### [facility] [address] [place], [address] MCHC (RBC) [Mass/Vol] 34.3 g/dL Normal 32-36 [facility] Comment on above: Performed By: #### L 506.1001, [id number], L500.4050, L100.0100 #### [facility] [address] [place], [address] MCV (RBC) [Entitic vol] 90.1 fL Normal 80-94 [facility] Comment on above: Performed By: #### L 506.1001, [id number], L500.4050, L100.0100 #### [facility] [address] [place], [address] Monocytes/100 WBC (Bld) 12.6 % High 0-10 [facility] Comment on above: Performed By: #### L 506.1001, [id number], L500.4050, L100.0100 #### [facility] [address] [place], [address] Neutrophils/100 WBC (Bld) 55.5 % Normal 47-70 [facility] Comment on above: Performed By: #### L 506.1001, [id number], L500.4050, L100.0100 #### [facility] [address] [place], [address] Nucleated RBC (Bld) [#/Vol] 0 10*3/uL Normal 0-5 [facility] Comment on above: Performed By: #### L 506.1001, [id number], L500.4050, L100.0100 #### [facility] [address] [place], [address] Platelet mean volume (Bld) [Entitic vol] 10.8 fL Normal 6.2-12.0 [facility] Comment on above: Performed By: #### L 506.1001, [id number], L500.4050, L100.0100 #### [facility] [address] [place], [address] Platelets (Bld) [#/Vol] 221 10*3/uL Normal 150-450 [facility] Comment on above: Performed By: #### L 506.1001, [id number], L500.4050, L100.0100 #### [facility] [address] [place], [address] RBC (Bld) [#/Vol] 4.95 10*6/uL Normal 4.6-6.2 [facility] Comment on above: Performed By: #### L 506.1001, [id number], L500.4050, L100.0100 #### [facility] [address] [place], [address] RDW SD 42.5 fl Normal 35.1-43.9 [facility] Comment on above: Performed By: #### L 506.1001, [id number], L500.4050, L100.0100 #### [facility] [address] [place], [address] WBC (Bld) [#/Vol] 4.9 10*3/uL Normal 4.4-11.[address] [facility] Comment on above: Performed By: #### L 506.1001, [id number], L500.4050, L100.0100 #### [facility] [address] [place], [address] Carbon dioxide, total [Moles /volume] in Central venous bloodOrdered By: Arturo Vivar on 06-26-2024 CO2 [Moles/Vol] 25.6 mmol/L 21.0-32.0 [facility] Chloride assayOrdered By: Josue Vivar on 06-26-2024 Chloride [Moles/Vol] 106 mmol/L 98-108 [facility] Comprehensive Metabolic Prof ilon 06-26-2024 Albumin [Mass/Vol] 4.4 g/dL Normal 3.4-4.[address] [facility] Comment on above: Performed By: #### L 506.1001, [id number], L500.4050, L100.0100 #### [facility] [address] [place], [address] Albumin/Globulin [Mass ratio] 1.5 {ratio} Normal 0.9-2.4 [facility] Comment on above: Performed By: #### L 506.1001, [id number], L500.4050, L100.0100 #### [facility] [address] [place], [address] ALK PHOS 54 U/L Normal 40-129 [facility] Comment on above: Performed By: #### L 506.1001, [id number], L500.4050, L100.0100 #### [facility] [address] [place], [address] ALT [Catalytic activity/Vol] 33 U/L Normal <=46 [facility] Comment on above: Performed By: #### L 506.1001, [id number], L500.4050, L100.0100 #### [facility] [address] [place], [address] AST [Catalytic activity/Vol] 27 U/L Normal <=37 [facility] Comment on above: Performed By: #### L 506.1001, [id number], L500.4050, L100.0100 #### [facility] [address] [place], [address] Bilirubin [Mass/Vol] 0.38 mg/dL Normal 0.00-1.30 [facility] Comment on above: Performed By: #### L 506.1001, [id number], L500.4050, L100.0100 #### [facility] [address] [place], [address] BUN/CRE 15.3 RATIO Normal 10-20 [facility] Comment on above: Performed By: #### L 506.1001, [id number], L500.4050, L100.0100 #### [facility] [address] [place], [address] Calcium [Mass/Vol] 9.6 mg/dL Normal 7.6-11.[address] [facility] Comment on above: Performed By: #### L 506.1001, [id number], L500.4050, L100.0100 #### [facility] [address] [place], [address] Chloride [Moles/Vol] 106 mmol/L Normal 98-108 [facility] Comment on above: Performed By: #### L 506.1001, [id number], L500.4050, L100.0100 #### [facility] [address] [place], [address] CO2 [Moles/Vol] 25.6 mmol/L Normal 21.0-32.0 [facility] Comment on above: Performed By: #### L 506.1001, [id number], L500.4050, L100.0100 #### [facility] [address] [place], [address] Creatinine [Mass/Vol] 1.14 mg/dL Normal 0.70-1.20 [facility] Comment on above: Performed By: #### L 506.1001, [id number], L500.4050, L100.0100 #### [facility] [address] [place], [address] GAP 9 Normal 5-15 [facility] Comment on above: Performed By: #### L 506.1001, [id number], L500.4050, L100.0100 #### [facility] [address] [place], [address] GFR/1.73 sq M.predicted among non-blacks MDRD (S/P/Bld) [Vol rate/Area] 70 mL/min/{1.73_m2} Normal >60 [facility] Comment on above: Result Comment: mL/m in/1.73m2 CKD-EPI Creatinine Equation (2020) Performed By: #### L 506.1001, [id number], L500.4050, L100.0100 #### [facility] [address] [place], [address] Globulin (S) [Mass/Vol] 2.9 g/dL Normal 2.2-4.2 [facility] Comment on above: Performed By: #### L 506.1001, [id number], L500.4050, L100.0100 #### [facility] [address] [place], [address] Glucose [Mass/Vol] 105 mg/dL High 70-[address] [facility] Comment on above: Performed By: #### L 506.1001, [id number], L500.4050, L100.0100 #### [facility] [address] [place], [address] Potassium [Moles/Vol] 4.6 mmol/L Normal 3.3-5.1 [facility] Comment on above: Performed By: #### L 506.1001, [id number], L500.4050, L100.0100 #### [facility] [address] [place], [address] Sodium [Moles/Vol] 140 mmol/L Normal 133-[address] [facility] Comment on above: Performed By: #### L 506.1001, [id number], L500.4050, L100.0100 #### [facility] [address] [place], [address] T PROT 7.3 g/dL Normal 5.9-8.4 [facility] Comment on above: Performed By: #### L 506.1001, [id number], L500.4050, L100.0100 #### [facility] [address] [place], [address] Urea nitrogen [Mass/Vol] 17 mg/dL Normal 4-19 [facility] Comment on above: Performed By: #### L 506.1001, [id number], L500.4050, L100.0100 #### [facility] [address] [place], [address] Eosinophil percentageOrdered By: Arturo Vivar on 06-26-2024 Eosinophils/100 WBC (Bld) 1.9 % 0-5 [facility] Erythrocyte distribution wid th ratioOrdered By: Arturo Vivar on 06-26-2024 Erythrocyte distribution width (RBC) [Ratio] 12.9 % 11.6-14.6 [facility] Erythrocyte distribution wid th standard deviationOrdered By: Arturo Vivar on 06-26-2024 Erythrocyte distribution width (RBC) [Entitic vol] 42.5 fL 35.1-43.9 [facility] Erythrocyte distribution width (RBC) [Ratio] 42.5 fl 35.1-43.9 [facility] GFR/1.73 sq M.predicted renee g non-blacks MDRD (S/P/Bld) [Vol rate/Area]Ordered By: Arturo Vivar on 06-26-2024 Estimated GFR (MDRD) Non-Af Amer 70 >60 [facility] Comment on above: mL/min/1.73m2 CKD-EP I Creatinine Equation (2020) Glomerular filtration rate ( GFR) estimation/1.73 sq m using serum, plasma, or whole bOrdered By: Arturo Vivar on 06-26-2024 GFR/1.73 sq M.predicted among non-blacks MDRD (S/P/Bld) [Vol rate/Area] 70 mL/min/{1.73_m2} >60 [facility] Comment on above: mL/min/1.73m2 CKD-EP I Creatinine Equation (2020) Hematocrit Auto (Bld) [Volum e fraction]Ordered By: Arturo Vivar on 06-26-2024 Hematocrit (Bld) [Volume fraction] 44.6 % 40-54 [facility] Hemoglobin measurementOrdere d By: Arturo Vivar on 06-26-2024 Hemoglobin (Bld) [Mass/Vol] 15.3 g/dL 13.0-16.5 [facility] Immature granulocytes/100 WB C Auto (Bld)Ordered By: Arturo Vivar on 06-26-2024 Immature granulocytes/100 WBC (Bld) 0.200 % 0.0-0.9 [facility] Comment on above: IG% - Immature Granu locytes (promyelocytes, myelocytes and metamyelocytes) > 1% indicates that a LEFT SHIFT is Present. L506.1001on 06-26-2024 Vitamin D 25-OH 23.7 ng/mL Low 30-100 [facility] Comment on above: Result Comment: Farida min D Status Deficiency: <20 ng/mL (50nmol/L) Insufficiency: 20-30 ng/mL (50-75 nmol/L) Sufficiency: 30-100 ng/mL (75-250 nmol/L) Toxicity: >100 ng/mL (>250 nmol/L) Performed By: #### L 506.1001, L501.9520, L500.4050, L100.0100 #### [facility] [address] [place], [address] Laboratory - Chemistry and C hemistry - challengeOrdered By: Arturo Vivar on 06-26-2024 AST [Catalytic activity/Vol] 27 U/L <38 [facility] Lymphocytes Auto (Unsp spec) [#/Vol]Ordered By: Arturo Vivar on 06-26-2024 Lymphocytes (Bld) [#/Vol] 1.40 10*3/uL 0.83-4.51 [facility] Lymphocytes/100 WBC Auto (Un sp spec)Ordered By: Arturo Vivar on 06-26-2024 Lymphocytes/100 WBC (Bld) 28.8 % 19-41 [facility] MCV (mean corpuscular volume ) determinationOrdered By: Arturo Vivar on 06-26-2024 MCV (RBC) [Entitic vol] 90.1 fL 80-94 [facility] Mean corpuscular hemoglobin (MCH) determinationOr[facility]: [facility] MCH (RBC) [Entitic mass] 30.9 pg 27.0-32.0 [facility] Mean corpuscular hemoglobin concentration (MCHC) determinationOrdered By: [facility] MCHC (RBC) [Mass/Vol] 34.3 g/dL 32-36 [facility] Mean platelet volume determi nationOrdered By: Arturo Vivar on 06-26-2024 Platelet mean volume (Bld) [Entitic vol] 10.8 fL 6.2-12.0 [facility] Monocyte percentageOrdered B y: Arturo Vivar on 06-26-2024 Monocytes/100 WBC (Bld) 12.6 % High 0-10 [facility] Neutrophil percentageOrdered By: Arturo Vivar on 06-26-2024 Neutrophils/100 WBC (Bld) 55.5 % 47-70 [facility] Nucleated red blood cell per centageOrdered By: Arturo Vivar on 06-26-2024 Nucleated RBC/100 WBC (Bld) [Ratio] 0 % 0-5 [facility] Platelet countOrdered By: Josue Vivar on 06-26-2024 Platelets (Bld) [#/Vol] 221 10*3/uL 150-450 [facility] Potassium (Unsp spec) [Mass/ Vol]Ordered By: Arturo Vivar on 06-26-2024 Potassium [Moles/Vol] 4.6 mmol/L 3.3-5.1 [facility] Potassium measurement (mass/ volume)Ordered By: Arturo Vivar on 06-26-2024 Potassium (Unsp spec) [Mass/Vol] 4.6 mmol/L 3.3-5.1 [facility] RBC Auto (Bld) [#/Vol]Ordere d By: Atruro Vivar on 06-26-2024 RBC (Bld) [#/Vol] 4.95 10*6/uL 4.6-6.2 [facility] Serum creatinine measurement (mass/volume)Ordered By: Arturo Vivar on 06-26-2024 Creatinine [Mass/Vol] 1.14 mg/dL 0.70-1.20 [facility] Serum globulin measurementOr dered By: Arturo Vivar 06-26-2024 Globulin (S) [Mass/Vol] 2.9 g/dL 2.2-4.2 [facility] Serum glucose measurement (m ass/volume)Ordered By: Arturo Vivar on 06-26-2024 Glucose [Mass/Vol] 105 mg/dL High 70-[address] [facility] Serum or plasma alanine benedict otransferase (ALT) measurementOrdered By: Arturo Vivar 06-26-2024 ALT [Catalytic activity/Vol] 33 U/L <47 [facility] Serum or plasma albumin jerman urement (mass/volume)Ordered By: Arturo Vivar 06-26-2024 Albumin [Mass/Vol] 4.4 g/dL 3.4-4.[address] [facility] Serum or plasma albumin/glob ulin mass ratioOrdered By: Arturo Vivar 06-26-2024 Albumin/Globulin [Mass ratio] 1.5 {ratio} 0.9-2.4 [facility] Serum or plasma alkaline jeb sphatase measurementOrdered By: Arturo Vivar 06-26-2024 ALP [Catalytic activity/Vol] 54 U/L 40-129 [facility] Serum or plasma calcium jerman urement (mass/volume)Ordered By: Arturo Vivar on 06-26-2024 Calcium [Mass/Vol] 9.6 mg/dL 7.6-11.[address] [facility] Serum or plasma urea nitroge n measurement (mass/volume)Ordered By: Arturo Vivar on 06-26-2024 Urea nitrogen [Mass/Vol] 17 mg/dL 4-19 [facility] Sodium levelOrdered By: Arturo Vivar on 06-26-2024 Sodium [Moles/Vol] 140 mmol/L 133-[address] [facility] TSH DL <= 0.005 mIU/L QnOrde red By: Arturo Vivar on 06-26-2024 Thyroid Stimulating Hormone (TSH) 2.880 uIU/mL 0.300-4.200 [facility] TSH Qn 2.880 uIU/mL 0.300-4.200 [facility] Thyroid Stim Hormone (TSH)on 06-26-2024 TSH 2.880 uIU/mL Normal 0.300-4.200 [facility] Comment on above: Performed By: #### L 506.1001, L501.9520, L500.4050, L100.0100 #### [facility] [address] [place], [address] Total proteinOrdered By: Arturo Vivar on 06-26-2024 Protein [Mass/Vol] 7.3 g/dL 5.9-8.[address] [facility] Vitamin D, 25-hydroxyOrdered By: Arturo Vivar on 06-26-2024 Vitamin D 25-Hydroxy 23.7 ng/mL Low 30-100 [facility] Comment on above: Vitamin D StatusDefi ciency: <20 ng/mL (50nmol/L)Insufficiency: 20-30 ng/mL (50-75 nmol/L)Sufficiency: 30-100 ng/mL (75-250 nmol/L)Toxicity: >100 ng/mL (>250 nmol/L) White blood cell (WBC) count Ordered By: Arturo Vivar on 06-26-2024 WBC (Bld) [#/Vol] 4.9 10*3/uL 4.4-11.[address] [facility] Absolute lymphocyte countOrd ered By: Arturo Vivar on 05-25-2023 Lymphocytes Auto (Unsp spec) [#/Vol] 1.53 10*3/uL 0.83-4.51 [facility] Automated lymphocyte count a s percentage of total leukocytesOrdered By: Artruo Vivar on 05-25-2023 Lymphocytes/100 WBC Auto (Unsp spec) 31.5 % 19-41 [facility] Basophil percentageOrdered B y: Arturo Vivar on 05-25-2023 Basophils/100 WBC (Bld) 1.4 % 0-1 [facility] Bilirubin [Mass/Vol] 0.70 mg/dL 0.20-1.00 [facility] Comment on above: For patients on eltr ombopag therapy, use of Dimension [place] TBIL is not recommended. Chloride [Moles/Vol] 112 mmol/L 98-107 [facility] Eosinophils/100 WBC (Bld) 2.1 % 0-5 [facility] Glucose [Mass/Vol] 91 mg/dL 74-[address] [facility] Hemoglobin (Bld) [Mass/Vol] 15.3 g/dL 13.0-16.5 [facility] Monocytes/100 WBC (Bld) 16.3 % 0-10 [facility] Neutrophils (Bld) [#/Vol] 2.4 10*3/uL 2.0-7.7 [facility] Neutrophils/100 WBC (Bld) 48.5 % 47-70 [facility] Potassium [Moles/Vol] 4.1 mmol/L 3.5-5.1 [facility] Protein [Mass/Vol] 7.5 g/dL 6.4-8.[address] [facility] Sodium [Moles/Vol] 143 mmol/L 136-[address] [facility] WBC (Bld) [#/Vol] 4.9 10*3/uL 4.4-11.[address] [facility] Determination of erythrocyte mean corpuscular volume (MCV)Ordered By: Arturo Vivar on 05-25-2023 MCV (RBC) [Entitic vol] 90.6 fL 80-94 [facility] Erythrocyte distribution wid th ratioOrdered By: Arturo Vivar on 05-25-2023 Erythrocyte distribution width (RBC) [Ratio] 12.8 % 11.6-14.6 [facility] Erythrocyte distribution wid th standard deviationOrdered By: Arturo Cb on 05-25-2023 Erythrocyte distribution width (RBC) [Entitic vol] 42.4 fL 35.1-43.9 [facility] Hematocrit Auto (Bld) [Volum e fraction]Ordered By: [facility] Cb on 05-25-2023 Hematocrit (Bld) [Volume fraction] 46.4 % 40-54 [facility] Immature granulocytes/100 WB C Auto (Bld)Or[facility]: [facility] Immature granulocytes/100 WBC (Bld) 0.200 % 0.0-0.9 [facility] Comment on above: IG% - Immature Granu locytes (promyelocytes, myelocytes and metamyelocytes) > 1% indicates that a LEFT SHIFT is Present. Laboratory - Chemistry and C hemistry - challengeOrdered By: Arturo Vivar on 05-25-2023 Albumin/Globulin [Mass ratio] 1.1 {ratio} 0.9-2.4 [facility] ALP [Catalytic activity/Vol] 61 U/L 45-117 [facility] ALT [Catalytic activity/Vol] 47 U/L 16-61 [facility] CO2 [Moles/Vol] 26.0 mmol/L 21.0-32.0 [facility] Globulin (S) [Mass/Vol] 3.5 g/dL 2.2-4.2 [facility] Urea nitrogen/Creatinine [Mass ratio] 14.8 mg/mg 10-20 [facility] - Hematology and Cell countsOrdered By: Arturo Vivar on 05-25-2023 MCH (RBC) [Entitic mass] 29.9 pg 27.0-32.0 [facility] MCHC (RBC) [Mass/Vol] 33.0 g/dL 32-36 [facility] Nucleated RBC/100 WBC (Bld) [Ratio] 0 % 0-5 [facility] Platelet mean volume (Bld) [Entitic vol] 11.2 fL 6.2-12.0 [facility] Platelets (Bld) [#/Vol] 229 10*3/uL 150-450 [facility] No Panel InformationOrdered By: Arturo Vivar on 05-25-2023 Estimated GFR (MDRD) Amer 76 mL/min >60 [facility] Comment on above: GFR Calc Estimated GFR (MDRD) Non-Af Amer 63 mL/min >60 [facility] Comment on above: Non- GFR Calc Prostate Specific Antigen Screen 1.09 ng/mL 0.00-4.00 [facility] Comment on above: This test was perfor med using the TPSA assay method for the[employer] chemistry system. Values obtained with differentassay methods cannot be used interchangably.When changing PSA assays in the course of monitoring apatient, additional sequential testing should be carriedout to confirm baseline values. Vitamin D 25-Hydroxy 26.8 ng/mL [facility] Comment on above: Vitamin D 25(OH) Sta tus Range Deficiency <20 ng/mL (50nmol/L) Insufficiency 20 - 30 ng/mL (50 - 75 nmol/L) Sufficiency 30 - 100 ng/mL (75 - 250 nmol/L) Toxicity >100 ng/mL (>250 nmol/L) RBC Auto (Bld) [#/Vol]Ordere d By: Arturo Vivar on 05-25-2023 RBC (Bld) [#/Vol] 5.12 10*6/uL 4.6-6.2 [facility] Serum or plasma calcium jerman urement (mass/volume)Ordered By: Arturo Vivar on 05-25-2023 Calcium [Mass/Vol] 9.0 mg/dL 8.5-10.[address] [facility] Serum or plasma creatinine m easurement (mass/volume)Ordered By: Arturo Vivar on 05-25-2023 Creatinine [Mass/Vol] 1.22 mg/dL 0.70-1.30 [facility] Comment on above: The validity of the calculated GFR & GFRAA in patients over 70 years has not been determined. Clinical correlation is essential. Serum or plasma thyroid stim ulating hormone (TSH) measurement (units/volume)Ordered By: Arturo Vivar on 05-25-2023 TSH Qn 1.40 uIU/mL 0.358-3.74 [facility] Serum or plasma urea nitroge n measurement (mass/volume)Ordered By: Arturo Vivar 05-25-2023 Urea nitrogen [Mass/Vol] 18 mg/dL 7-18 [facility] Thin prep Papanicolaou smear with manual screeningOrdered By: Arturo Vivar on 05-25-2023 Thin prep Papanicolaou smear with manual screening 4.0 g/dL 3.2-5.0 [facility] Thin prep Papanicolaou smear with manual screening 27 U/L 15-37 [facility] Thin prep Papanicolaou smear with manual screening 5 5-15 [facility] Absolute lymphocyte counton 12-29-2021 Lymphocytes Auto (Unsp spec) [#/Vol] 1.86 10*3/uL 0.83-4.51 [facility] Work Phone: Basophil percentageon 2021 Basophils/100 WBC (Bld) 1.0 % 0-1 [facility] Work Phone: Bilirubin [Mass/Vol] 0.50 mg/dL 0.20-1.00 [facility] Work Phone: Comment on above: For patients on eltr ombopag therapy, use of Dimension [place] TBIL is not recommended. Chloride [Moles/Vol] 107 mmol/L 98-107 [facility] Work Phone: Eosinophils/100 WBC (Bld) 1.2 % 0-5 [facility] Work Phone: Glucose [Mass/Vol] 91 mg/dL 74-[address] [facility] Work Phone: Neutrophils (Bld) [#/Vol] 3.2 10*3/uL 2.0-7.7 [facility] Work Phone: Neutrophils/100 WBC (Bld) 54.0 % 47-70 [facility] Work Phone: Potassium [Moles/Vol] 4.1 mmol/L 3.5-5.1 [facility] Work Phone: Protein [Mass/Vol] 7.9 g/dL 6.4-8.[address] [facility] Work Phone: Sodium [Moles/Vol] 142 mmol/L 136-[address] [facility] Work Phone: WBC (Bld) [#/Vol] 5.9 10*3/uL 4.4-11.[address] [facility] Work Phone: Blood erythrocytes count (nu mber/volume)on 12-29-2021 RBC (Bld) [#/Vol] 4.86 10*6/uL 4.6-6.2 [facility]: Blood hemoglobin measurement (mass/volume)on 12-29-2021 Hemoglobin (Bld) [Mass/Vol] 15.1 g/dL 13.0-16.5 [facility] Work Phone: Blood lymphocytes/100 leukoc yteson 12-29-2021 Lymphocytes/100 WBC (Bld) 31.7 % 19-41 [facility] Work Phone: Blood monocytes/100 leukocyt eson 12-29-2021 Monocytes/100 WBC (Bld) 11.9 % 0-10 [facility] Work Phone: Blood platelet mean volumeon 12-29-2021 Platelet mean volume (Bld) [Entitic vol] 10.7 fL 6.2-12.0 [facility] Work Phone: Determination of erythrocyte mean corpuscular volume (MCV)on 12-29-2021 MCV (RBC) [Entitic vol] 91.4 fL 80-94 [facility] Work Phone: Hematocrit Auto (Bld) [Volum e fraction]on 12-29-2021 Hematocrit (Bld) [Volume fraction] 44.4 % 40-54 [facility] Work Phone: Laboratory - Chemistry and C hemistry - challengeon 12-29-2021 ALP [Catalytic activity/Vol] 56 U/L 45-117 [facility] Work Phone: ALT [Catalytic activity/Vol] 65 U/L 16-61 [facility] Work Phone: CO2 [Moles/Vol] 28.0 mmol/L 21.0-32.0 [facility] Work Phone: [phone] Globulin (S) [Mass/Vol] 4.0 g/dL 2.2-4.2 [facility] Work Phone: [phone] Urea nitrogen/Creatinine [Mass ratio] 15.5 mg/mg 10-20 [facility] Work Phone: [phone] Laboratory - Hematology and Cell countson 12-29-2021 Erythrocyte distribution width (RBC) [Entitic vol] 41.2 fL 35.1-43.9 [facility] Work Phone: [phone] Erythrocyte distribution width (RBC) [Ratio] 12.4 % 11.6-14.6 [facility] Work Phone: [phone] Immature granulocytes/100 WBC (Bld) 0.200 % 0.0-0.9 [facility] Work Phone: [phone] Comment on above: IG% - Immature Granu locytes (promyelocytes, myelocytes and metamyelocytes) > 1% indicates that a LEFT SHIFT is Present. MCH (RBC) [Entitic mass] 31.1 pg 27.0-32.0 [facility] Work Phone: [phone] Nucleated RBC/100 WBC (Bld) [Ratio] 0 % 0-5 [facility] Work Phone: [phone] MCHC Auto (RBC) [Mass/Vol]on 12-29-2021 MCHC (RBC) [Mass/Vol] 34.0 g/dL 32-36 [facility] Work Phone: [phone] No Panel Informationon 12-29 Estimated GFR (MDRD) Amer 72 mL/min >60 [facility] Work Phone: [phone] Comment on above: GFR Calc Estimated GFR (MDRD) Non-Af Amer 60 mL/min >60 [facility] Work Phone: [phone] Comment on above: Non- GFR Calc Prostate Specific Antigen Screen 1.50 ng/mL 0.00-4.00 [facility] Work Phone: [phone] Comment on above: This test was perfor med using the TPSA assay method for [email or web address] chemistry system. Values obtained with differentassay methods cannot be used interchangably.When changing PSA assays in the course of monitoring apatient, additional sequential testing should be carriedout to confirm baseline values. Thyroid Stimulating Hormone (TSH) 1.40 uIU/mL 0.358-3.74 [facility] Work Phone: Platelets bldon 12-29-2021 Platelets (Bld) [#/Vol] 266 10*3/uL 150-450 [facility] Work Phone: Serum or plasma albumin jerman urement (mass/volume)on 12-29-2021 Albumin [Mass/Vol] 3.9 g/dL 3.2-5.[address] [facility] Work Phone: Serum or plasma albumin/glob ulin mass ratioon 12-29-2021 Albumin/Globulin [Mass ratio] 1.0 {ratio} 0.9-2.4 [facility] Work Phone: [phone] Serum or plasma calcium jerman urement (mass/volume)on 12-29-2021 Calcium [Mass/Vol] 9.3 mg/dL 8.5-10.[address] [facility] Work Phone: Serum or plasma creatinine m easurement (mass/volume)on 12-29-2021 Creatinine [Mass/Vol] 1.29 mg/dL 0.70-1.30 [facility] Work Phone: Comment on above: The validity of the calculated GFR & GFRAA in patients over 70 years has not been determined. Clinical correlation is essential. Serum or plasma urea nitroge n measurement (mass/volume)on 12-29-2021 Urea nitrogen [Mass/Vol] 20 mg/dL 7-18 [facility] Work Phone: Thin prep Papanicolaou smear with manual screeningon 12-29-2021 Thin prep Papanicolaou smear with manual screening 25 U/L 15-37 [facility] Work Phone: [phone] Thin prep Papanicolaou smear with manual screening 7 5-15 [facility] Work Phone: [phone] CNOVon 01-30-2021 [facility] Office Visit (CARDMM ) MARY MESA ([id number]) 1955 M Date Time Provider Department 01/30/21 8:20 AM KARTHIK MEJIA During your visit today, we recorded the following information about you: Pulse Blood pressure Weight Height 58/minute 142/80 81.3 kg 1.676 m Karthik Mejia DO 01/30/2021 10:05 AM Signed [facility] SE[facility] CARDIOLOGY [facility] OUTPATIENT VISIT DATE January 30, 2021 PRIMARY CARE PHYSICIAN: Arturo Vivar MD [address] [address] HISTORY OF PRESENT ILLNESS: Mr. Mesa is a 65 year old male. The patient returns for follow-up due to history of coronary disease and stenting of his LAD. More recently with stressful situations he has noted what he first described as angina. With further discussion these are quick short-lived symptoms consistent with a palpitations/skipped/ missed beat. He apparently has a history of [...] function was normal. He is on a beta-jesus. Blood pressure is slightly high again today [...] Pulse (!) 58 Ht 167.6 cm (5' 6) Wt 81.3 kg (179 lb 4.8 oz) [...] Negative for adenopathy. Does not bruise/bleed easily. Psychiatric/Behaviora l: Negative for sleep disturbance. The patient is not nervous/anxious. PAST MEDICAL HISTORY Diagnosis Date - CAD (coronary artery disease) stents at age 53, +family history - History of placement of stent in LAD coronary artery x2 - HTN (hypertension) - Hyperlipidemia - Premature PAST SURGICAL HISTORY Procedure Laterality Date - PAST SURGICAL HISTORY OF coronary artery stents S (more content not included)... Normal [facility] CARDIAC PERF STRESS/EXERC ISEon 02-16-2020 MD CARDIAC PERF STRESS/EXERCISE * * *Final Report* * * DATE OF EXAM: Feb 16 2020 11:17AM TWYLA 0004 - MD CARDIAC PERF STRESS/EXERCISE / PROCEDURE REASON: multiple diagnoses * * * * Physician Interpretation * * * * PATIENT: Name: MR. MARY MESA Age: 64 years Gender: M CONCLUSIONS: 1. SPECT Perfusion Study: Normal. 2. There is no scintigraphic evidence for inducible ischemia. 3. No evidence of scarred myocardium. 4. Left ventricle is normal in size. The left ventricle systolic function is normal. 5. This is a low risk scan. LVEF % 65 Prior Study Comparison No prior nuclear cardiology exam available for comparison. Nuclear Med Report:1-Day [id number] Exercise Stress Gated SPECT: Myocardial perfusion imaging was performed at rest 30 to 60 minutes following the IV injection of Tc-99m tetrofosmin. One minute prior to peak exercise, the patient was injected IV with Tc-99m tetrofosmin. Gated post stress tomographic imaging was performed 10 to 20 minutes later. See administered doses below. [facility] Date of service: 02/16/2020 9:44:09 AM Ordering Physician: Karthik Mejia Requesting Physician: Indication: Post PCI, asymptomatic >2y Interpreting physician: Jose Holt MD Previous Cardiovascular Interventions: PCI (2009 x3) Height: 0.00 cm BSA: 0.00 m? Weight: 0.00 kg BMI: Exam Type: Rest Stress Radiopharm: Tc-99m Tetrofosmin Tc-99m Tetrofosmin Dosage(mCi): 13.2 33.7 Atten Correction: not performed not performed Stress Agent: Treadmill Resting Blood Press: 150/74 mmHg Image Quality The overall study imaging quality was deemed to be excellent. FINDINGS: LVEF: 65 % LEFT VENTRICLE The left ventricle is normal in size. Left ventricular systolic function is normal. Stress Test Findings: There is no scintigraphic evidence for inducible ischemia. There is no evidence of scarring. Final -------- Stress ECG Report: [facility] Date of service: 02/16/2020 9:44:09 AM Ordering physician: KARTHIK MEJIA Specialist: Susan Che Academic Specialist: Theresa Huerta Stress ECG interpreting physician: Jose Holt MD PATIENT: Name: MR. MARY MESA Age: 64 years Gender: M Height: 0.00 cm BSA: 0.00 m? Weight: 0.00 kg BMI: STRESS ECG CONCLUSION: Conclusion: Normal STRESS ECG SUMMARY: The patient's resting heart rate was 65 bpm and blood pressure was 150/74 mmHg. The patient exercised according to the Corky protocol. Total exercise time was 9 minutes and 0 seconds. The maximum heart rate was 150 bpm, which is 95% predicted for age. METs achieved was 8.3. The double product [place] [address]. Peak heart rate was 150 bpm and peak blood pressure was 186/84 mmHg. STRESS ECG FINDINGS: Indications: Dyspnea Diagnosis: Hyperlipidemia, Hypertension and Coronary Artery Disease Medications: Antiinflammatory (steroids, etc.), Betablocker, Diuretics and Statins Medications: ASA Resting ECG: Normal Sinus Rhythm Exercise Protocol: Corky Stress Test: +----+ +--- -----+ +---+ ---+---+---+----+ Step Speed (MPH) Grade(%) Time (min) HR SYS GLORIA RPE METS +----+ +--- -----+ +---+ ---+---+---+----+ 1 1.7 10.0 3.0 96 158 82 10 4.2 +----+ +--- -----+ +---+ ---+---+---+----+ 2 2.5 12.0 6.0 122 164 82 13 6.1 +----+ +--- -----+ +---+ ---+---+---+----+ +-----+ +-- ------+ +--- +---+---+---+----+ Speed (MPH) Grade(%) Time (min) HR SYS GLORIA RPE METS +-----+ +-- ------+ +--- +---+---+---+----+ Final 3.4 14.0 9.00 150 186 84 14 8.3 +-----+ +-- ------+ +--- +---+---+---+----+ Resting HR: 65 bpm Peak HR: 150 bpm (95% MPHR) Resting BP: 150 / 74 mmHg Peak BP: 186 / 84 mmHg Total Exercise Time: 9 minutes 0 seconds METS achieved: 8.3 Chronotropic response index (CRI): 1.24 Heart rate recovery (HRR): 25 bpm Rate Pressure Product (RPP): 43576 Alvarez Treadmill Score: 1.8 Reason for test termination: Leg Fatigue and Shortness of Breath. Symptoms during test: Shortness of breath and fatigue. Heart rate response: Adequate heart rate response, Normal CRI (>0.8 Not on B Jesus) and Normal HRR (>12 or >[address]/EC) Functional Capacity: Average functional capacity Blood pressure response: Normal BP response ST segment and T wave changes: Borderline ST depression (<1 mm or any upslope) during stress Alvarez Treadmill Score: Abnormal Alvarez Treadmill Score (<5 but >= -10) Arrhythmias: PACs and Unifocal PVCs Final -------- Stress Leather Coater Report: [facility] Date of service: 02/16/2020 9:44:09 AM Supervising physician: Amos Downey MD PATIENT: Name: MR. MARY MESA Age: 64 years Gender: M The supervising physician was present during the stress procedure. Final Dental Hygienist: MYRANDA Transcribe Date/Time: Feb 16 2020 9:44A Dictated by : JOSE HOLT MD This examination was interpreted and the report reviewed and electronically signed by: JOSE HOLT MD on Feb 22 2020 1:44PM EST [id number] Normal [facility] PROGRESSon 02-16-2020 PROGRESS HNO ID: [id number] Author: ONEYDA Guallpa (Ct) Service: Nuclear Medicine Author Type: Clinical Learning And Development Coordinator Type: Progress Notes Filed: 02/16/2020 10:59 AM Note Text: RADIOLOGY SERVICE PROGRESS NOTE SERVICE DATE: 02/16/2020 SERVICE TIME: 10:58 AM PATIENT IDENTITY VERIFICATION COMPLETED USING TWO (2) STANDARD IDENTIFIERS: Name and Date of confirmed by patient verbally and Name and Date of confirmed by identification band FALL SCREENING: Has the patient had 2 falls in the last year or 1 fall with injury or currently using an Ambulatory Assistive Device (Walker, Cane, Wheelchair, Crutches, etc.)? No PATIENT GENDER DATA: .male ALLERGIES: Reviewed and unchanged MEDICATIONS REVIEWED: Not applicable PATIENT RELEVANT IMPLANT DATA REVIEWED: Not Applicable CREATININE: No results found for: CREAT, EGFROTH, EGFRAA P.O.C.T. RESULTS: N/A February 16, [address] PERFORMED: No IV SITE: Ambulatory: A peripheral IV was started in the Left antecubital site with a Angio cath: 22 gauge. POST EXAM PIV STATUS: Discontinued PROCEDURE TYPE: NM Stress: 13.2mCi Gq05a-Mwbafdy was administered IV for Rest Imaging at 09:13 by ONEYDA Guallpa. 33.7 mCi Qm60b-Rxbxriv was administered IV for Stress Imaging at 10:37 by ONEYDA Guallpa. PATIENT DISCHARGED TO: Ambulatory patient, left MD department area. A Diagnostic radioactive procedure has taken place, with no further precautions necessary other than routine body substance precautions. More information regarding radiation safety can be found using this link: [email or web address]% [email or web address] %[email or web address]-%20Diagnostic%20N uclear%20Medicine%20P [email or web address] SIGNATURE: ONEYDA Guallpa PATIENT NAME: Mary Monroykevin DATE: February 16, 2020 TIME: 10:58 AM PAGER/CONTACT #: [facility] 02-15-2020 [facility] Telephone (CDLBME) SAMANTHAMARY Hussein ([id number]) 1955 M Date Time Provider Department 02/15/20 SUSAN CHE (NORBERT) CDLBME During your visit today, we recorded the following information about you: Susan Che RN, RN 02/15/2020 12:13 PM Signed Spoke with patient regarding reminder for stress test tomorrow and given instructions. Allergies As of Date: 02/15/2020 Noted Allergy Reaction PENICILLIN 09/08/2017 16 - Unknown Date Reviewed: 01/31/2020 Reviewed by: Karthik Mejia DO - Fully Assessed Reason for Visit: Reminder Call [[id number]] Prescriptions as of 02/15/2020 Sig: FAMOTIDINE 40 MG TABLET Take 40 mg by mouth once enrique* PERINDOPRIL ERBUMINE 4 MG TAB* Take 1 tablet by mouth once d* MOTRIN ORAL Take by mouth. TYLENOL ORAL Take by mouth. CYCLOBENZAPRINE 10 MG TABLET Take 1 tablet by mouth three * ASPIRIN 81 MG CHEWABLE TABLET Take 81 mg by mouth once enrique* ZANTAC 75 ORAL Take by mouth. BISOPROLOL 2.5 MG-HYDROCHLORO* Take 1 tablet by mouth once d* ROSUVASTATIN 20 MG TABLET Take 20 mg by mouth once enrique* ALPRAZOLAM 1 MG TABLET Take 1 mg by mouth at bedtime* Problem List As Of Date 02/15/2020 Noted Resolved Coronary artery disease involving chemehuevi rivera*01/31/2020 History of placement of stent in LAD coronary a* More... HTN (hypertension) [I10] Hyperlipidemia [E78.5] Encounter Status:Closed by SUSAN CHE on 02/15/20 [facility] Vital Signs Date Time Vital Sign Value Performing Clinician Mando angulo 11-10-2024 09:55-0400 Diastolic blood pressure 95 mm[Hg] Dr. Arturo Vivar MD Work Phone: [facility] 11-10-2024 09:55-0400 Systolic blood pressure 165 mm[Hg] Dr. Arturo Vivar MD Work Phone: [facility] 11-10-2024 09:44-0400 Body height 167.[address] Arturo Vivar MD Work Phone: [facility] 11-10-2024 09:44-0400 Body mass index (BMI) [Ratio] 28.7 kg/m2 Dr. Arturo Vivar MD Work Phone: [facility] 11-10-2024 09:44-0400 Body weight 80.[address] Arturo Vivar MD Work Phone: [phone] [place] [address] 11-10-2024 09:44-0400 Respiratory rate 16 /min Dr. Arturo Vivar MD Work Phone: [phone] [place] [address] 09-28-2024 13:27-0400 Body height 167.[address] Arturo Vivar MD Work Phone: [phone] [place] [address] 09-28-2024 13:27-0400 Body mass index (BMI) [Ratio] 28.7 kg/m2 Dr. Arturo Vivar MD Work Phone: [phone] [place] [address] 09-28-2024 13:27-0400 Body weight 80.[address] Arturo Vivar MD Work Phone: [phone] [place] [address] 09-28-2024 13:27-0400 Diastolic blood pressure 88 mm[Hg] Dr. Arturo Vivar MD Work Phone: [phone] [place] [address] 09-28-2024 13:27-0400 Heart rate 74 /min Dr. Arturo Vivar MD Work Phone: [phone] [place] [address] 09-28-2024 13:27-0400 Respiratory rate 16 /min Dr. Arturo Vivar MD Work Phone: [phone] [place] [address] 09-28-2024 13:27-0400 Systolic blood pressure 139 mm[Hg] Dr. Arturo Vivar MD Work Phone: [phone] [place] [address] 12-29-2021 12:50-0400 Body height 167.64 cm [facility] Work Phone: Encounters Encounter Date Encounter Type Care Provider Facility Start: 12-25-2024 ambulatory Arturo Vivar Facility:[facility] Start: 11-10-2024 End: 11-10-[address] Bobby Givens MD -[facility] Work Phone: Start: 11-10-2024 End: 11-10-[address] Arturo Vivar MD Work Phone: -[facility] Start: 10-19-2024 End: 10-19-[address] Arturo Vivar MD Work Phone: -Laboratory [facility]y [facility] 3rd Flr Start: 10-19-2024 End: 10-19-[address] Arturo Vivar MD -Laboratory [facility] 3rd Flr Start: 10-19-2024 End: 10-19-2024 ambulatory [facility] Facility:[facility] Start: 09-28-2024 End: 09-28-[address] Bobby Givens MD -[facility] Work Phone: Start: 09-28-2024 End: 09-28-[address] Arturo Vivar MD Work Phone: [facility] Work Phone: Start: 07-31-2024 End: 07-31-[address] Arturo Vivar MD -[facility] Work Phone: Start: 07-31-2024 End: 07-31-2024 ambulatory [facility] Facility:[facility] Start: 06-26-2024 End: 06-26-[address] Arturo iVvar MD Work Phone: [facility] Work Phone: Start: 06-26-2024 End: 06-26-[address] Arturo Vivar MD -Laboratory, Phy Office 3rd Flr Start: 06-26-2024 End: 06-26-2024 ambulatory [facility] Facility:[facility] Start: 06-16-2023 End: 06-16-2023 ambulatory [facility] Work Phone: Start: 06-16-2023 End: 06-16-2023 Patient encounter procedure [facility]-Laboratory, Phy Office 3rd Flr Start: 05-25-2023 End: 05-25-2023 ambulatory [facility] Work Phone: Start: 05-25-2023 End: 05-25-2023 Patient encounter procedure [facility]-Laboratory, Phy Office 3rd Flr Start: 07-28-2022 End: 07-28-2022 ambulatory [facility] Work Phone: Start: 07-28-2022 End: 07-28-2022 Patient encounter procedure [facility]-Radiology, [facility] Start: 03-23-2022 Refill Kathleen Lalo Palm er SUSTAINABLE COMMUNITIES DESIGNER.DRIVER GUIDE Work Phone: Cardiology Comment on above: Refill Request Start: 01-26-2022 End: 01-26-2022 ambulatory [facility] Work Phone: Start: 01-26-2022 End: 01-26-2022 Patient encounter procedure [facility] Start: 12-29-2021 End: 12-29-2021 [facility] Work Phone: Start: 12-29-2021 End: 12-29-2021 Patient encounter procedure [facility]-Laboratory, [facility] 3rd Flr Procedures Date Procedure Procedure Detail Performing Clinician Start: 07-31-2024 MRI of lumbar spine Dr. Arturo Vivar MD Work Phone: Start: 06-26-2024 Vitamin D, 25-hydrox y measurement Dr. Arturo Vivar MD Work Phone: Comment on above: Vitamin D StatusDefi ciency: <20 ng/mL (50nmol/L)Insufficiency: 20-30 ng/mL (50-75 nmol/L)Sufficiency: 30-100 ng/mL (75-250 nmol/L)Toxicity: >100 ng/mL (>250 nmol/L) Start: 07-28-2022 Radiologic examinati on of knee Start: 01-26-2022 X-ray of lumbar spin e, two or three views Start: 02-07-2009 History of placement of stent for coronary artery disease History of coronary artery stent placement Dr. Bobby Givens MD Comment on above: PCI-ANDREA-LAD w/ 3.5 x 12 mm Xience Stent and ANDREA-D1 w/ 3.0 x 12 mm Xience Stent 10/2008; PCI-ANDREA-RCA w/ 3.5 x 18 mm Xience Stent 02/07/2009 History of placement of stent in anterior descending branch of left coronary artery History of placement of stent in LAD coronary artery Kathleen Shaw APRN.DEANNE Work Phone: Plan of Treatment Date Care Activity Detail Author Start: 06-16-2023 Borrelia burgdorferi blot test [facility] Start: 12-11-2021 Influenza vaccination INFLUENZA (#1) [facility] Start: 04-12-2021 DEPRESSION ASSESSMENT DEPRESSION ASSESSMENT [facility] Start: 03-13-2021 COVID-19 VACCINE (4 - Booster for Pfizer series) COVID-19 VACCINE (4 - Booster for Pfizer series) [facility] Start: 2012 PROSTATE CANCER SCREENING DISCUSSION PROSTATE CANCER SCREENING DISCUSSION [facility] Start: 06-21-2007 SHINGRIX VACCINE (1 of 2) SHINGRIX VACCINE (1 of 2) [facility] Start: 2002 COLOGUARD (FIT-DNA) COLOGUARD (FIT-DNA) [facility] Start: 2002 Colonoscopy COLONOSCOPY [facility] Start: 2002 COLORECTAL CANCER SCREENING COLORECTAL CANCER SCREENING [facility] Start: [address] COLONOGRAPHY [facility] Start: 2002 DIABETES SCREEN DIABETES SCREEN [facility] Start: 2002 FECAL OCCULT BLOOD FECAL OCCULT BLOOD [facility] Start: 2002 SIGMOIDOSCOPY SIGMOIDOSCOPY [facility] Start: 1992 LIPID SCREEN LIPID SCREEN [facility] Start: 1976 Urine microalbumin profile DTAP,TDAP,TD (1 - Tdap) [facility] Start: 06-21-1975 ANNUAL PCP TEAM CHRONIC DISEASE VISIT ANNUAL PCP TEAM CHRONIC DISEASE VISIT [facility] Start: 06-21-1975 BP CONTROLLED (<130/80) BP CONTROLLED (<130/80) [facility] Start: 06-21-1975 Hepatitis B surface antibody level LDL CHOLESTEROL [facility] Start: 06-21-1975 HEPATITIS C SCREENING HEPATITIS C SCREENING [facility] Start: 06-21-1975 HIV SCREENING HIV SCREENING [facility] Laboratory data interpretation [facility] Payers Date Payer Category Payer Self-pay [id number] 2024 Unknown [id number] 2023 Medicare [id number] 2023 Medicare [id number] 2019 Private Health Insurance [employer]IG[employer] C[employer] PPO [id number] 2019-Present [phone] [address] [place] [address] PPO [id number] Private Health Insurance [id number] Private Health Insurance CIGNA [id number] Unknown [id number] Unknown [id number] Unknown [id number] Unknown [id number] Unknown [id number] Unknown [id number] Social History Date Type Detail Facility Start: 12-29-2021 End: 12-29-2021 Tobacco smoking status NHIS Unknown if ever smoked [facility] Start: 1955 Sex Assigned At Male W [facility] Start: 09-08-2017 End: 12-29-2021 Tobacco smoking status NHIS Never smoked tobacco [facility] Start: 09-08-2017 Tobacco use and exposure Smokeless tobacco non-user [facility] Start: 01-30-2021 Alcohol intake Current drinke r of alcohol (finding) [facility] Start: 01-31-2020 History SDOH Alcohol Frequency 5 [facility] Start: 01-31-2020 History SDOH Alcohol Std Drinks 1 [facility] Start: 1955 Sex Assigned At Not on file C [facility] Start: 07-05-2024 Sex Male (finding) [facility] Evaluation note 09-28-2024 Note Date & Type Note Facility 09-28-2024 Evaluation note Diagnosis Onset Date Resolution Essential hypertension chronic September 28, 2024 1:22pm History of coronary artery stent placement February 07, 2009 chronic September 28, 2024 1:22pm Hyperlipidemia chronic September 28, 2024 1:22pm [facility] Work Phone: Note 03-24-2022 Telephone Encounter - Shani Lunsford MA - 03/24/2022 10:09 AM EST Note Date & Type Note Facility 03-24-2022 Miscellaneous Notes Formattin g of this note might be different from the original. Patient due for OV w/ Julian. NEVIN 01/30/21 documented in this encounter [facility] Progress note 01-30-2021 Note Date & Type Note Facility 01-30-2021 Note HNO ID: [id number] Author: Karthik Mejia, DO Service: ? Author Type: Physician Type: Progress Notes Filed: 01/30/2021 10:05 AM Note Text: [facility] SECTION OF REGIONAL CARDIOLOGY [facility] OUTPATIENT VISIT DATE January 30, 2021 PRIMARY CARE PHYSICIAN: Arturo Vivar MD [address] [address] HISTORY OF PRESENT ILLNESS: Mr. Mesa is [...] function was normal. He is on a beta-jesus. Blood pressure is slightly high again today [...] Pulse (!) 58 Ht 167.6 cm (5' 6) Wt 81.3 kg (179 lb 4.8 oz) [...] o (more content not included)... [facility] Evaluation note Note Date & Type Note Facility Evaluation note No assessment information availa ble [facility] Work Phone: Reason for referral (narrative) Note Date & Type Note Facility Reason for referral (narrative) No reason for referral information available [facility] Work Phone: Summary Purpose Family History No Family History Records FoundNo Family History Records FoundNo Family History Records Found Advance Directives No Advanced Directives Records Found Advance Directive Response Recorded Date/ Time Living Will Yes December 29, 2021 12:50pm Power of Middle Stitcher No December 12:50pm Advance Directive Response Recorded Date/ Time Living Will Yes December 29, 2021 11:50am Power of Middle Stitcher No December 11:50am Advance Directive Response Recorded Date/ Time Living Will Yes December 29, 2021 12:50pm Do you have a Healthcare Power of Middle Stitcher? No December 29, 2021 12:50pm Chief Complaint and Reason for Visit Chief Complaint LOW BACK PAIN Chief Complaint Admit Date LOW BACK PAIN July 31, 2024 9:5 0am 1 Y FU September 28, 2024 1:22 pm Reason for Visit Admit Date Essential hypertension September 28, 2024 1 :22pm History of coronary artery stent placeme nt September 28, 2024 1:22pm Hyperlipidemia September 28, 2024 1:22 pm Chief Complaint Admit Date LOW BACK PAIN July 31, 2024 9:5 0am 1 Y FU September 28, 2024 1:22 pm MED REVIEW/DIETETIC TECH PER PT RQ November 10 9:42am Additional Source Comments (unrecognized sect ion and content) No Status Records FoundNo Status Records FoundNo Status Records Found INFORMATION SOURCE (unrecogn ized section and content) DATE CREATED AUTHOR 02/23/2020 [facility] DATE CREATED AUTHOR AUTHOR'S ORGANIZ ATION 05/17/2021 [facility] DATE CREATED AUTHOR AUTHOR'S ORGANIZ ATION 12/22/2024 [facility] Goals (unrecognized section and content) Goals may be documented in a n alternate sectionGoals may be documented in an alternate sectionGoals may be documented in an alternate sectionGoals may be documented in an alternate sectionGoals may be documented in an alternate sectionGoals may be documented in an alternate sectionGoals may be documented in an alternate sectionGoals may be documented in an alternate sectionGoals may be documented in an alternate section Source Comments (unrecognize d section and content) In the event this informatio n is protected by the Federal Confidentiality of Alcohol and Drug Abuse Patient Records regulations: The Federal rules restrict any use of the information to criminally investigate or prosecute any alcohol or drug abuse patient.[facility] Reason for Visit (unrecogniz ed section and content) Reason Comments Refill Request Care Teams (unrecognized sec tion and content) Windows Consultant Relationship Specialty Start Date End Date Cb Arturo Wagner [address] [id number] PCP - General Gerontology 01/31/20 Team Status: Active Member Role Status Dates Dr. Arturo Vivar MD Family Provider Active Dr. Arturo Vivar MD Primary Care Provider Active Team Status: Inactive Member Role Status Dates Dr. Arturo Vivar MD Primary Care Provider, Attending Provider Active Team Status: Inactive Member Role Status Dates Dr. Arturo Vivar MD Primary Care Provider Active Start: June 26, 2024 End: June 26, 2024 Dr. Arturo Vivar MD Attending Provider Active Start: June 26, 2024 End: June 26, 2024 Team Status: Active Member Role Status Dates Dr. Arturo Vivar MD Primary Care Provider Active Team Status: Inactive Member Role Status Dates Dr. Arturo Vivar MD Primary Care Provider Active Start: July 31, 2024 End: July 31, 2024 Dr. Arturo Vivar MD Attending Provider Active Start: July 31, 2024 End: July 31, 2024 Dr. Arturo Vivar MD Referring Provider Active Start: July 31, 2024 End: July 31, 2024 Team Status: Inactive Member Role Status Dates Dr. Arturo Vivar MD Primary Care Provider Active Start: September 28, 2024 End: September 28, 2024 Dr. Arturo Vivar MD Referring Provider Active Start: September 28, 2024 End: September 28, 2024 Dr. Bobby Givens MD Attending Provider Active S tart: September 28, 2024 End: September 28, 2024 Team Status: Active Member Role/Relationship Status Dates Dr. Arturo Vivar MD Primary Care Provider Active Team Status: Inactive Member Role/Relationship Status Dates Dr. Arturo Vivar MD Primary Care Provider Active Start: July 31, 2024 End: July 31, 2024 Dr. Arturo Vivar MD Attending Provider Active Start: July 31, 2024 End: July 31, 2024 Dr. Arturo Vivar MD Referring Provider Active Start: July 31, 2024 End: July 31, 2024 Team Status: Inactive Member Role/Relationship Status Dates Dr. Arturo Vivar MD Primary Care Provider Active Start: September 28, 2024 End: September 28, 2024 Dr. Arturo Vivar MD Referring Provider Active Start: September 28, 2024 End: September 28, 2024 Dr. Bobby Givens MD Attending Provider Active S tart: September 28, 2024 End: September 28, 2024 Team Status: Inactive Member Role/Relationship Status Dates Dr. Arturo Vivar MD Primary Care Provider Active Start: October 19, 2024 End: October 19, 2024 Dr. Arturo Vivar MD Attending Provider Active Start: October 19, 2024 End: October 19, 2024 Team Status: Inactive Member Role/Relationship Status Dates Dr. Arturo Vivar MD Primary Care Provider Active Start: November 10, 2024 End: November 10, 2024 Dr. Arturo Vivar MD Referring Provider Active Start: November 10, 2024 End: November 10, 2024 Dr. Bobby Givens MD Attending Provider Active S tart: November 10, 2024 End: November 10, 2024 FOR RECORDS PERTAINING TO PATIENTS WHO ARE [...] BE BASED ON THE PRIMARY CLINICAL RECORDS. [employer] provides no warranty or guarantee of the accuracy or completeness of information in this document.
--- NOTE | 2024-12-27 17:44 | STRESSREP_ITS ---
Stress Test Report Exercise myocardial perfusion stress test. 69-year-old man with a history of chest pain. Stress protocol: Resting EKG demonstrates normal sinus rhythm with a rate of 67 bpm resting blood pressure is 132/80 mmHg. The patient exercised according to the regular [facility] protocol for a total duration of 7-1/2 minutes attaining a maximum heart rate of 148 bpm which was 96% of maximum predicted heart rate; the maximum workload was 10.1 metabolic equivalents. At rest there were no ST or T wave changes noted to suggest ischemia and at peak exercise upsloping ST changes only were noted which did not meet the criteria for ischemia. No clinical angina was noted the test was terminated due to the target heart rate being achieved/fatigue. The peak blood pressure was 170/73 mmHg. Rate-pressure product was 25,000. Myocardial perfusion protocol. 13 mCi of technetium 99m sestamibi was injected at rest. The patient exercised according to regular [facility]y protocol for total duration of 7-1/2 minutes and at peak exercise 38.7 mCi of technetium 99m sestamibi was injected stress images were obtained stress and rest images were reconstructed in comparing the short axis vertical long and horizontal long axis. Gated images were also obtained. Perfusion SPECT analysis: Review of the stress images demonstrate normal uptake of tracer noted in all are as of the myocardium. The resting images similarly demonstrate normal uptake of tracer noted in all areas of the myocardium. No areas of reversibility are noted to suggest ischemia no previous infarct was noted. Gated SPECT analysis: The gated ejection fraction is 51%. Conclusion: Normal exercise myocardial perfusion stress test at a high workload.
== END | disposition home or self-care (01) ==
LOC: CVS 07:00
PROVIDERS: PCP Family Medicine Geriatric Medicine; Referring Provider Internal Medicine Cardiovascular Disease; Visit Provider Internal Medicine Cardiovascular Disease
DX: Z95.5 Presence of coronary angioplasty implant and graft (principal)
CPT/HCPCS: 78452; 93017; A9500; A4216